=== PATIENT | female | born 1950 | race African-American/Black ===

== ENCOUNTER 2018-08-10 13:28 | Inpatient (IN) | payer OTHER ==
--- NOTE | 2018-08-10 14:15 | PDOC ---
History of Present Illness - General Chief Complaint: Respiratory Stated Complaint: Respiratory - History of Present Illness Initial Comments: The patient is a 68F who is ventilator dependent and w/ a history of COPD and HTN presents from her care facility for evaluation of hypoxia to the 80s at the facility as well as irregular heart beat. The patient reports increased trouble breathing, increased secretions recently, as well as a left chest point pain. She also reports a pressure-like back pain that radiates to her chest. She denies a history of irregular heart beat. She believes she takes a blood thinner, but it is not listed in her facility medications. She endoreses associated subjective fevers. Denies N/V/C/D, abdominal pain, BAEZ, vision changes, or changes in sensation. 08/10/18 15:40 Past History - Past Medical History Allergies/Adverse Reactions: Allergies Allergy/AdvReac Type Severity Reaction Status Date / Time No Known Allergies Allergy Verified 08/10/18 15:30 Home Medications: Ambulatory Orders Amlodipine Besylate 5 mg NGT DAILY 08/10/18 Budesonide [Pulmicort 0.5 mg Nebulizer -] 2 ml IH BID 08/10/18 Donepezil HCl 5 mg GT DAILY 08/10/18 Ipratropium/Albuterol Sulfate [Iprat-Albut 0.5-3(2.5) mg/3 ml] 3 ml IH Q6H 08/10 Polyethylene Glycol 3350 [Miralax (For Daily Use) -] 17 gm NGT DAILY 08/10/18 Prednisone 10 mg NGT ONCE 08/10/18 Verapamil HCl 40 mg GT DAILY 08/10/18 Zolpidem Tartrate [Ambien] 5 mg NGT ASDIR 08/10/18 Asthma: Yes COPD: Yes Dementia: Yes (alzheime's) HTN: Yes Other medical history: DIC, INSOMNIA, pulmunary mycobacterial infection, 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 - Suicide/Smoking/Psychosocial Hx Smoking History: Unknown if ever smoked Have you smoked in the past 12 months: No Hx Alcohol Use: No Drug/Substance Use Hx: No Review of Systems - Review of Systems Able to Perform ROS?: No (medical condition (trach)) *Physical Exam - Vital Signs Last Vital Signs Temp Pulse Resp BP Pulse Ox 99.8 F H 129 H 18 138/115 H 86 L 08/10/18 13:58 08/10/18 13:58 08/10/18 13:58 08/10/18 13:58 08/10/18 13:58 - Physical Exam Comments: GENERAL: Awake, alert, in no acute distress HEAD: No signs of trauma, normocephalic, atraumatic EYES: PERRL, EOMI, sclera anicteric, conjunctiva clear ENT: Hearing grossly normal, nares patent, oropharynx clear without exudates. Tracheostomy in place NECK: Normal ROM, supple, no cervical LAD LUNGS: No tachypnia, on vent; saturating 95-100%; b/l wheeze/rhonchi HEART: Tachycardia w/ rhythm, normal S1 and S2, no murmurs appreciated, peripheral pulses normal and equal bilaterally ABDOMEN: Soft, nontender, normoactive bowel sounds. PEG tube in place w/o surrounding erythema. No guarding, no rebound EXTREMITIES : Normal inspection, Normal range of motion, no edema. No clubbing or cyanosis NEUROLOGICAL: Follows two step commands; 11T; No focal sensorimotor deficits SKIN: Warm, Dry, normal turgor, no rashes or lesions noted 08/10/18 18:15 ED Treatment Course - LABORATORY CBC & Chemistry Diagram: 08/10/18 15:10 08/10/18 16:40 - RADIOLOGY Radiology Studies Ordered: Category Date Time Status CHEST X-RAY PORTABLE* [RAD] Stat Radiology 08/10/18 14:14 Ordered Medical Decision Making - Medical Decision Making The patient is a 68F who is ventilator dependent presents from her care facility for evaluation of hypoxia and irregular heartbeat ED Course Sepsis w/u Trop I CXR ECG Ofirmev 1000mg IV once for pain 1L NS for resuscitation 08/10/18 16:25 Lactate 0.8 WBC 10.7 ECG significant for sinus tachycardia CXR significant for RLL PNA -Will initiate Vanc and Zosyn for hospital acquired PNA Will give 1 round of duo-neb for wheeze/rhonchi 08/10/18 16:55 Plan for admission for COPD, PNA, sepsis UA w/o evidence of UTI Tachycardia improving 90s-100s from 120s Trop 0.07 08/10/18 17:57 Dispo: Admit 08/10/18 19:14 *DC/Admit/Observation/Transfer Diagnosis at time of Disposition: COPD (chronic obstructive pulmonary disease) Qualifiers: COPD type: unspecified COPD Qualified Code(s): J44.9 - Chronic obstructive pulmonary disease, unspecified PNA (pneumonia) Qualifiers: Pneumonia type: due to unspecified organism Laterality: right Lung location: unspecified part of lung Qualified Code(s): J18.9 - Pneumonia, unspecified organism Sepsis Qualifiers: Sepsis type: sepsis due to unspecified organism Qualified Code(s): A41.9 - Sepsis, unspecified organism - Discharge Dispostion Condition at time of disposition: Guarded Decision to Admit order: Yes - Referrals Referrals: Michael Kruger MD [Primary Care Provider] - - Patient Instructions - Post Discharge Activity
[2018-08-10 15:25] LABS: VENOUS PC02 35.8 mmHg (38-52); VENOUS PH 7.49 (7.32-7.42)
[2018-08-10 15:30] LABS: BASO % 0.5 % (0-2.0); EOS % 0.2 % (0-4.5); HEMATOCRIT 46.6 % (32.4-45.2); HEMOGLOBIN 14.9 GM/dL (10.7-15.3); LYMPH % 7.2 % (8-40); MCH 26.2 pg (25.7-33.7); MEAN CELL VOLUME 81.9 fl (80-96); MEAN PLT VOLUME 8.7 fl (7.5-11.1); MONO % 2.6 % (3.8-10.2); NEUT % 89.5 % (42.8-82.8); PLATELET COUNT 325 K/MM3 (134-434); RBC 5.69 M/mm3 (3.60-5.2); RDW 17.9 % (11.6-15.6); WHITE BLOOD COUNT 10.7 K/mm3 (4.0-10.0)
[2018-08-10 15:40] LABS: INR 0.94 (0.83-1.09); PROTHROMBIN TIME (PATIENT) 11.1 SEC (9.7-13.0)
[2018-08-10 15:42] LABS: ACTIVATED PTT 39.3 SECONDS (25.2-36.5)
--- NOTE | 2018-08-10 15:42 | PDOC ---
Attending Attestation - HPI HPI: 08/10/18 15:44 The patient is a 68 year old female with a significant past medical history of COPD, HTN, and ventilator dependent who presents to the ER for evaluation of hypoxia in the 80s and irregular heart beat. Patient has noticed increased secretions over the past few days. Patient is also complaining of back pain that is pressure-like in nature with radiation to the chest. Patient denies history of irregular heart beat. The patient denies chest pain, shortness of breath, headache, and dizziness. Patient admits to subjective fever but denies chills, nausea, vomit, diarrhea, and constipation. Denies dysuria, frequency, urgency, and hematuria. Allergies: NKA Past surgical history: None reported. Social history: No reported alcohol, drug, or cigarette use. PCP: Dr. Chaudhari - Physicial Exam PE: 08/10/18 16:12 Adult Physical Exam Vitals: Triage vital signs reviewed General Appearance: No acute distress, well nourished, well developed Cardiac: Regular rate and rhythm, no murmurs, no rubs, no gallops Lungs: Clear to auscultation bilateral, good air movement bilaterally Abdomen: Soft, nondistended, normal bowel sounds, nontender to palpation Extremities: Full range of motion to all extremities, no cyanosis, clubbing, or edema Skin: Warm and dry, no rashes or lesions, no rash, no petechiae Neuro: AOX3; Cranial Nerves 2-12 grossly intact, Strength intact to all extremities, Sensation intact to all extremities, gait normal Psych: Normal mood, normal affect <Heather Hester - Last Filed: 08/10/18 16:11> - Resident Resident Name: Chevy Miguel - ED Attending Attestation I have performed the following: I have examined & evaluated the patient, The case was reviewed & discussed with the resident, I agree w/resident's findings & plan, Exceptions are as noted - Medical Decision Making 08/10/18 16:49 Trached, vented presents to the ED with respiratory distress. Initially hypoxic tachycardic now improving on vent Chest x-ray and labs pending Likely Admission, Dr. Ash to follow up labs and reasses <Onel Mueller - Last Filed: 08/10/18 16:51> Heart Score/ECG Review - ECG Impressions Comment:: 08/10/18 16:49 EKG performed at 1558 demonstrates sinus tachycardia no ST elevations or T-wave inversions Interpreted by me. <Onel Mueller - Last Filed: 08/10/18 16:51>
[2018-08-10] MEDS ORDERED: ACETAMINOPHEN 1000 MG/100 ML VIAL (NON FORMULARY) IVPB ONE (15:44)
[2018-08-10] MEDS ORDERED: ACETAMINOPHEN INJECTION 100 ML IVPB ONE (16:42)
[2018-08-10] MEDS ORDERED: SODIUM CHLORIDE 0.9% 500 ML INFUS.BAG IV ONE (16:48)
--- NOTE | 2018-08-10 16:50 | PDOC ---
*Physical Exam - Vital Signs Last Vital Signs Temp Pulse Resp BP Pulse Ox 99.8 F H 120 H 18 138/115 H 100 08/10/18 14:30 08/10/18 14:30 08/10/18 14:30 08/10/18 13:58 08/10/18 14:30 - Physical Exam Comments: 08/10/18 17:10 Gen: trach, awake, vented heart: +s1s2 tachy lungs: rhonchi R base, wheezing on the R side abd: soft, nt/nd +bs ext: no c/c/e, radial/pedal pulses intact, no rashes ED Treatment Course - LABORATORY CBC & Chemistry Diagram: 08/10/18 15:10 08/10/18 16:40 - ADDITIONAL ORDERS Additional order review: Laboratory Results 08/10/18 08/10/18 08/10/18 15:23 15:10 15:10 PT with INR INR PTT (Actin FS) VBG pH 7.49 H POC VBG pCO2 35.8 L POC VBG pO2 132.0 H Mixed VBG HCO3 26.7 H Sodium Cancelled Potassium Cancelled Chloride Cancelled Carbon Dioxide Cancelled Anion Gap Cancelled BUN Cancelled Creatinine Cancelled Creat Clearance w eGFR Cancelled Random Glucose Cancelled Lactic Acid 0.8 Calcium Cancelled Total Bilirubin Cancelled AST Cancelled ALT Cancelled Alkaline Phosphatase Cancelled Total Protein Cancelled Albumin Cancelled 08/10/18 15:10 PT with INR 11.10 INR 0.94 PTT (Actin FS) 39.3 H VBG pH POC VBG pCO2 POC VBG pO2 Mixed VBG HCO3 Sodium Potassium Chloride Carbon Dioxide Anion Gap BUN Creatinine Creat Clearance w eGFR Random Glucose Lactic Acid Calcium Total Bilirubin AST ALT Alkaline Phosphatase Total Protein Albumin 08/10/18 15:10 RBC 5.69 H MCV 81.9 MCHC 32.0 RDW 17.9 H MPV 8.7 Neutrophils % 89.5 H Lymphocytes % 7.2 L Monocytes % 2.6 L Eosinophils % 0.2 Basophils % 0.5 Medical Decision Making - Medical Decision Making 08/10/18 16:49 pt signed out by the prior attending pending labs and xray pt with increased secretions and hypoxia upon arrival 08/10/18 17:11 pt with pna on xray wheezing rhonchi mildly elevated wbc - will start broad spectrum abx pt was hypoxic to 86 upon arrival and tachy to 129 vitals improved after suction and venting in the ed pt will need to be admitted PMD dr. Kruger admits to Dr. Davenport who is now covered by [facility] 08/10/18 18:38 resident discussed the case with davon who accepts the patient to service *DC/Admit/Observation/Transfer Diagnosis at time of Disposition: COPD (chronic obstructive pulmonary disease) Qualifiers: COPD type: unspecified COPD Qualified Code(s): J44.9 - Chronic obstructive pulmonary disease, unspecified PNA (pneumonia) Qualifiers: Pneumonia type: due to unspecified organism Laterality: right Lung location: unspecified part of lung Qualified Code(s): J18.9 - Pneumonia, unspecified organism Sepsis Qualifiers: Sepsis type: sepsis due to unspecified organism Qualified Code(s): A41.9 - Sepsis, unspecified organism - Discharge Dispostion Condition at time of disposition: Guarded Decision to Admit order: Yes - Referrals Referrals: Michael Kruger MD [Primary Care Provider] - - Patient Instructions - Post Discharge Activity - Attestations Physician Attestion: 08/10/18 16:50 I, Dr. Clemencia Ash, DO, attest that this document has been prepared under my direction and personally reviewed by me in its entirety. I further attest, that it accurately reflects all work, treatment, procedures and medical decision -making performed by me.
[2018-08-10] MEDS ORDERED: VANCOMYCIN 1,500 MG in DEXTROSE 5%-WATER - 500 ML IVPB ONE (16:53)
[2018-08-10] MEDS ORDERED: PIPERACILLIN/TAZOB 3.375 GM 3.375 GM in DEXTROSE 5%-WATER - 50 ML IVPB ONE (16:53)
[2018-08-10] MEDS ORDERED: ALBUTEROL SO4 2.5/IPRATROPIUM 0.5 INH SOL 3 ML VIAL.NEB. NEB ONE ×3 (17:03→22:16)
[2018-08-10 17:19] LABS: URINE APPEARANCE SLCLOUDY; URINE BILIRUBIN NEGATIVE (<2.0 mg/dL); URINE COLOR LTYELLOW; URINE GLUCOSE (UA) NEGATIVE (NEGATIVE); URINE KETONE NEGATIVE (NEGATIVE); URINE LEUK ESTERASE 2+ (NEGATIVE); URINE NITRITE NEGATIVE (NEGATIVE); URINE PROTEIN NEGATIVE (NEGATIVE); URINE UROBILINOGEN NEGATIVE mg/dL (0.2-1.0)
[2018-08-10] MEDS ORDERED: PIPERACILLIN/TAZOB 3.375 GM 3.375 GM/50 ML BAG IVPB ONE (17:30)
[2018-08-10 17:31] LABS: EPI CELLS MODERATE /HPF (FEW); URINE MUCUS RARE
[2018-08-10 17:49] LABS: ALBUMIN 3.6 g/dl (3.4-5.0); ALK PHOS 90 U/L (45-117); ANION GAP 7 MMOL/L (8-16); BILIRUBIN,TOTAL 0.5 mg/dL (0.2-1); BLOOD UREA NITROGEN 14 mg/dL (7-18); CALCIUM 9.8 mg/dL (8.5-10.1); CHLORIDE 101 mmol/L (98-107); CO2 29 mmol/L (21-32); CREATININE 0.7 mg/dL (0.55-1.3); GLUCOSE,RANDOM 107 mg/dL (74-106); POTASSIUM 4.3 mmol/L (3.5-5.1); SGOT/AST 20 U/L (15-37); SGPT/ALT 6 U/L (13-61); SODIUM 136 mmol/L (136-145)
[2018-08-10] MEDS ORDERED: PANTOPRAZOLE SODIUM 40 MG VIAL IVPUSH ONE (18:47)
--- NOTE | 2018-08-10 18:54 | HP ---
CHIEF COMPLAINT: shortness of breath, fatigue PCP: Dr. Chaudhari HISTORY OF PRESENT ILLNESS: Patient is a 68 year old female with a significant past medical history of COPD , hypertension, ventilator dependency, peg tube. She presents to the ED from [facility] for shortness of breath, increased secretions and hypoxia. In the ED patient noted to have scattered rhonchi and hypoxia with oxygen in the 80s on arrival. She was also noted to be with sinus tachycardia in the 120s. Patient was suctioned and placed on ventilator and improved. She denies chest pain, states breathing is better after placed on the vent. Denies abdominal pain. She was note to have mildly elevated WBC, scattered wheezing and course rhonchi on auscultation suspicious for aspiration pneumonia. ER course was notable for: (1) wbc 10.7 (2) ph 7.49, co2 35.8, po2 132 (3) chest xray with evidence of pneumonia. (4) ekg with nsr 113, non specific t wave abnormality Family History: Allergies No Known Allergies Allergy (Verified 08/10/18 15:30) HOME MEDICATIONS: Home Medications Medication Instructions Recorded Amlodipine Besylate 5 mg NGT DAILY 08/10/18 Budesonide [Pulmicort 0.5 mg 2 ml IH BID 08/10/18 Nebulizer -] Donepezil HCl 5 mg GT DAILY 08/10/18 Ipratropium/Albuterol Sulfate 3 ml IH Q6H 08/10/18 [Iprat-Albut 0.5-3(2.5) mg/3 ml] Polyethylene Glycol 3350 [Miralax 17 gm NGT DAILY 08/10/18 (For Daily Use) -] Prednisone 10 mg NGT ONCE 08/10/18 Verapamil HCl 40 mg GT DAILY 08/10/18 Zolpidem Tartrate [Ambien] 5 mg NGT ASDIR 08/10/18 PHYSICAL EXAMINATION Vital Signs - 24 hr 08/10/18 08/10/18 08/10/18 13:58 14:10 14:30 Temperature 99.8 F H 99.8 F H Pulse Rate 129 H 120 H Respiratory 18 12 12 Rate Blood Pressure 138/115 H O2 Sat by Pulse 86 L 100 Oximetry (%) 08/10/18 18:00 Temperature Pulse Rate Respiratory 14 Rate Blood Pressure O2 Sat by Pulse Oximetry (%) GENERAL: Awake, in no acute distress. HEAD: Normal with no signs of trauma. EYES: Pupils equal, round and reactive to light, extraocular movements intact, sclera anicteric, conjunctiva clear. No lid lag. EARS, NOSE, THROAT: Ears normal, nares patent, oropharynx clear without exudates. Moist mucous membranes. NECK: + trach LUNGS: scattered wheezing, scattered rhonchi, accessory muscle use. improved with ventilator placement HEART: Regular rate and rhythm, normal S1 and S2 without murmur, rub or gallop. ABDOMEN: Soft, nontender, not distended, normoactive bowel sounds,+peg tube MUSCULOSKELETAL: No bony deformities or tenderness. No CVA tenderness. UPPER EXTREMITIES: No peripheral edema. LOWER EXTREMITIES: No calf tenderness. No peripheral edema PSYCHIATRIC: Cooperative. Good eye contact. Appropriate mood and affect. SKIN: Warm, dry, normal turgor, no rashes or lesions noted, normal capillary refill. Laboratory Results - last 24 hr 08/10/18 08/10/18 08/10/18 15:10 15:10 15:10 WBC 10.7 H RBC 5.69 H Hgb 14.9 Hct 46.6 H MCV 81.9 MCH 26.2 MCHC 32.0 RDW 17.9 H Plt Count 325 MPV 8.7 Absolute Neuts (auto) 9.6 H Neutrophils % 89.5 H Lymphocytes % 7.2 L Monocytes % 2.6 L Eosinophils % 0.2 Basophils % 0.5 Nucleated RBC % 0 PT with INR 11.10 INR 0.94 PTT (Actin FS) 39.3 H VBG pH POC VBG pCO2 POC VBG pO2 Mixed VBG HCO3 Sodium Cancelled Potassium Cancelled Chloride Cancelled Carbon Dioxide Cancelled Anion Gap Cancelled BUN Cancelled Creatinine Cancelled Creat Clearance w eGFR Cancelled Random Glucose Cancelled Lactic Acid Calcium Cancelled Total Bilirubin Cancelled AST Cancelled ALT Cancelled Alkaline Phosphatase Cancelled Troponin I Total Protein Cancelled Albumin Cancelled Urine Color Urine Appearance Urine pH Ur Specific [place] Urine Protein Urine Glucose (UA) Urine Ketones Urine Blood Urine Nitrite Urine Bilirubin Urine Urobilinogen Ur Leukocyte Esterase Urine WBC (Auto) Urine RBC (Auto) Ur Epithelial Cells Hyaline Casts Urine Mucus 08/10/18 08/10/18 08/10/18 15:10 15:23 16:40 WBC RBC Hgb Hct MCV MCH MCHC RDW Plt Count MPV Absolute Neuts (auto) Neutrophils % Lymphocytes % Monocytes % Eosinophils % Basophils % Nucleated RBC % PT with INR INR PTT (Actin FS) VBG pH 7.49 H POC VBG pCO2 35.8 L POC VBG pO2 132.0 H Mixed VBG HCO3 26.7 H Sodium 136 Potassium 4.3 Chloride 101 Carbon Dioxide 29 Anion Gap 7 L BUN 14 Creatinine 0.7 Creat Clearance w eGFR > 60 Random Glucose 107 H Lactic Acid 0.8 Calcium 9.8 Total Bilirubin 0.5 AST 20 ALT 6 L Alkaline Phosphatase 90 Troponin I 0.07 H Total Protein 8.0 Albumin 3.6 Urine Color Urine Appearance Urine pH Ur Specific [place] Urine Protein Urine Glucose (UA) Urine Ketones Urine Blood Urine Nitrite Urine Bilirubin Urine Urobilinogen Ur Leukocyte Esterase Urine WBC (Auto) Urine RBC (Auto) Ur Epithelial Cells Hyaline Casts Urine Mucus 08/10/18 08/10/18 17:10 17:50 WBC RBC Hgb Hct MCV MCH MCHC RDW Plt Count MPV Absolute Neuts (auto) Neutrophils % Lymphocytes % Monocytes % Eosinophils % Basophils % Nucleated RBC % PT with INR INR PTT (Actin FS) VBG pH POC VBG pCO2 POC VBG pO2 Mixed VBG HCO3 Sodium Potassium Chloride Carbon Dioxide Anion Gap BUN Creatinine Creat Clearance w eGFR Random Glucose Lactic Acid 0.8 Calcium Total Bilirubin AST ALT Alkaline Phosphatase Troponin I Total Protein Albumin Urine Color Ltyellow Urine Appearance Slcloudy Urine pH 8.0 Ur Specific [place] 1.011 Urine Protein Negative Urine Glucose (UA) Negative Urine Ketones Negative Urine Blood Negative Urine Nitrite Negative Urine Bilirubin Negative Urine Urobilinogen Negative Ur Leukocyte Esterase 2+ H Urine WBC (Auto) 42 Urine RBC (Auto) 40-60 Ur Epithelial Cells Moderate Hyaline Casts 5-9 Urine Mucus Rare ASSESSMENT/PLAN: Patient is a 68 year old female with a significant past medical history of COPD , hypertension, ventilator dependency, peg tube. She presents to the ED from [facility] for shortness of breath, increased secretions and hypoxia. In the ED patient noted to have scattered rhonchi and hypoxia with oxygen in the 80s on arrival. She was also noted to be with sinus tachycardia in the 120s. Patient was suctioned and placed on ventilator and improved. She denies chest pain, states breathing is better after placed on the vent. Denies abdominal pain. She was note to have mildly elevated WBC, scattered wheezing and course rhonchi on auscultation suspicious or aspiration pneumonia. Pulm: Aspiration pneumonia vs. Community acquired pneumonia. Chest xray with evidence of aspiration pneumonia. Patient has chronic peg tube. will order: duonebs scheduled, solumedrol 60mg q6 for wheezing, chest ct to further evaluate pna, zosyn iv in the ED. Will order one time night zosyn dose. ID consulted for further recommendations. urine and blood cultures pending. Card: EKG ST in the 117, trend troponins will order: troponins, echo : UA with +2 leuk est. coverage with zosyn. urine and blood cultures pending. fen will give gentle hydration and maintain NPO for possible aspiration pna monitor electrolytes npo, resume TF per primary provider disposition full code Visit type - Emergency Visit Emergency Visit: Yes ED Registration Date: 08/10/18 Care time: The patient presented to the Emergency Department on the above date and was hospitalized for further evaluation of their emergent condition. - New Patient This patient is new to me today: Yes Date on this admission: 08/10/18 - Critical Care Critical Care patient: No
[2018-08-10] MEDS ORDERED: methylPREDNISolone NA SUCC 40 MG/1 ML VIAL ONE ×2 (19:28→22:17)
[2018-08-10] MEDS ORDERED: PANTOPRAZOLE SODIUM 40 MG VIAL ONE (19:28)
[2018-08-10] MEDS: methylPREDNISolone NA SUCC 40 MG/1 ML VIAL IVPUSH SCH (19:33)
[2018-08-10] MEDS: SODIUM CHLORIDE 1,000 ML IV SCH (21:56)
[2018-08-10] MEDS: ALBUTEROL SO4 2.5/IPRATROPIUM 0.5 INH SOL 3 ML VIAL.NEB. NEB SCH (21:56)
[2018-08-10] MEDS: HEPARIN NA (PORCINE) 5,000 UNITS/ML 1ML VIAL SQ SCH (22:06)
[2018-08-10] MEDS ORDERED: HEPARIN NA (PORCINE) 5,000 UNITS/ML 1ML VIAL ONE (22:16)
[2018-08-11] MEDS ORDERED: PIPERACILLIN/TAZOB 3.375 GM 3.375 GM in DEXTROSE 5%-WATER - 50 ML IVPB ONE
[2018-08-11] MEDS: methylPREDNISolone NA SUCC 40 MG/1 ML VIAL IVPUSH SCH ×4 (04:21→18:44)
[2018-08-11] MEDS: HEPARIN NA (PORCINE) 5,000 UNITS/ML 1ML VIAL SQ SCH ×3 (06:01→22:37)
[2018-08-11] MEDS: ALBUTEROL SO4 2.5/IPRATROPIUM 0.5 INH SOL 3 ML VIAL.NEB. NEB SCH ×4 (07:04→21:46)
[2018-08-11 08:25] LABS: HEMATOCRIT 45.5 % (32.4-45.2); HEMOGLOBIN 14.8 GM/dL (10.7-15.3); MCH 26.6 pg (25.7-33.7); MCHC 32.5 g/dl (32.0-36.0); MEAN CELL VOLUME 82.1 fl (80-96); MEAN PLT VOLUME 8.4 fl (7.5-11.1); PLATELET COUNT 292 K/MM3 (134-434); RBC 5.54 M/mm3 (3.60-5.2); RDW 17.2 % (11.6-15.6); WHITE BLOOD COUNT 9.7 K/mm3 (4.0-10.0)
[2018-08-11 08:46] LABS: ANION GAP 10 MMOL/L (8-16); BLOOD UREA NITROGEN 16 mg/dL (7-18); CALCIUM 10.6 mg/dL (8.5-10.1); CHLORIDE 104 mmol/L (98-107); CO2 25 mmol/L (21-32); CREATININE 0.8 mg/dL (0.55-1.3); GLUCOSE,RANDOM 114 mg/dL (74-106); MAGNESIUM 2.4 mg/dL (1.8-2.4); POTASSIUM 4.2 mmol/L (3.5-5.1); SODIUM 139 mmol/L (136-145)
[2018-08-11] MEDS ORDERED: amLODIPine BESYLATE 5 MG TABLET (FP) ONE (08:55)
--- NOTE | 2018-08-11 09:12 | CON.ID ---
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 Cardio/Vascular: Yes: CHF, HTN, Pulmonary Hypertension Pulmonary: Yes: COPD, Other (respiratory failure with tracheostomy) - Past Surgical History Additional Surgical History: peg tube, tracheostomy - Alcohol/Substance Use Hx Alcohol Use: No - Smoking History Smoking history: Unknown if ever smoked Have you smoked in the past 12 months: No - Social History Usual Living Arrangement: [facility] ADL: Support Services History of Recent Travel: No Home Medications - Allergies Allergies/Adverse Reactions: Allergies Allergy/AdvReac Type Severity Reaction Status Date / Time No Known Allergies Allergy Verified 08/10/18 15:30 - Home Medications Home Medications: Ambulatory Orders Amlodipine Besylate 5 mg NGT DAILY 08/10/18 Budesonide [Pulmicort 0.5 mg Nebulizer -] 2 ml IH BID 08/10/18 Carbidopa/Levodopa [Carbidopa-Levo ER 50-200 Tab] 1 each PO Q6H 08/10/18 Donepezil HCl 5 mg GT DAILY 08/10/18 Ipratropium/Albuterol Sulfate [Iprat-Albut 0.5-3(2.5) mg/3 ml] 3 ml IH Q6H 08/10 Polyethylene Glycol 3350 [Miralax (For Daily Use) -] 17 gm NGT DAILY 08/10/18 Prednisone 10 mg NGT ONCE 08/10/18 Selegiline HCl 5 mg NGT DAILY 08/10/18 Verapamil HCl 40 mg GT DAILY 08/10/18 Zolpidem Tartrate [Ambien] 5 mg NGT ASDIR 08/10/18 Family Disease History - Family Disease History Family History: Unable to Obtain Review of Systems - Review of Systems Constitutional: denies: Chills, Fever Cardiovascular: reports: Chest Pain Gastrointestinal: denies: Abdominal Pain Physical Exam Vital Signs: Vital Signs Temperature 98.1 F 08/11/18 08:36 Pulse Rate 87 08/11/18 08:36 Respiratory Rate 12 08/11/18 08:45 Blood Pressure 157/106 H 08/11/18 08:36 O2 Sat by Pulse Oximetry (%) 95 08/11/18 02:43 Constitutional: Yes: Well Nourished, No Distress Eyes: Yes: Conjunctiva Clear HENT: Yes: Atraumatic, Normocephalic Neck: Yes: Other (tracheostomy) Cardiovascular: Yes: Regular Rate and Rhythm Respiratory: Yes: Regular, Diminished (at bases) Gastrointestinal: Yes: Normal Bowel Sounds, Soft ...Rectal Exam: Yes: Deferred Extremities: Yes: WNL Edema: No Integumentary: Yes: Other (no skin breakdown) Neurological: Yes: Alert, Oriented Labs: CBC, BMP 08/11/18 07:05 08/11/18 07:05 Imaging - Results Chest X-ray: Report Reviewed, Image Reviewed Cat Scan: Report Reviewed, Image Reviewed (RLL atelectasis/effusion) Problem List - Problems (1) PNA (pneumonia) Code(s): J18.9 - PNEUMONIA, UNSPECIFIED ORGANISM Qualifiers: Pneumonia type: due to unspecified organism Laterality: right Lung location: unspecified part of lung Qualified Code(s): J18.9 - Pneumonia, unspecified organism (2) Respiratory failure, chronic Code(s): J96.10 - CHRONIC RESPIRATORY FAILURE, UNSP W HYPOXIA OR HYPERCAPNIA (3) Hypoxia Code(s): R09.02 - HYPOXEMIA (4) HTN (hypertension) Code(s): I10 - ESSENTIAL (PRIMARY) HYPERTENSION (5) MRSA (methicillin resistant Staphylococcus aureus) colonization Code(s): Z22.322 - CARRIER OR SUSPECTED CARRIER OF METHICILLIN RESIS STAPH Assessment/Plan started on vancomycin and zosyn in ED will continue for possible pneumonia chest ct with RLL atelectasis/effusion- d/w radiology d/w Dr Blackwood who know her from [place]- he will see her to evaluate hypoxia history mrsa sputum colonization per [place] transfer sheets continue isolation for MRSA will continue vanco/zosyn for now
--- NOTE | 2018-08-11 09:27 | EKG ---
Test Reason : Blood Pressure : / mmHG Vent. Rate : 113 BPM Atrial Rate : 113 BPM P-R Int : 152 ms QRS Dur : 086 ms QT Int : 338 ms P-R-T Axes : 049 -02 058 degrees QTc Int : 463 ms SINUS TACHYCARDIA BIATRIAL ENLARGEMENT NO PREVIOUS ECGS AVAILABLE Confirmed by JOSH ENGLAND MD ([id number]) on 08/11/2018 9:27:50 AM Referred By: Confirmed By:JOSH ENGLAND MD
--- NOTE | 2018-08-11 09:51 | PN ---
Progress Note, Physician History of Present Illness: Patient is a 68 year old female with a significant past medical history of COPD , hypertension, ventilator dependency, peg tube. She presents to the ED from [facility] for shortness of breath, increased secretions and hypoxia. In the ED patient noted to have scattered rhonchi and hypoxia with oxygen in the 80s on arrival. She was also noted to be with sinus tachycardia in the 120s. Patient was suctioned and placed on ventilator and improved. - Current Medication List Current Medications: Active Medications Albuterol/Ipratropium (Duoneb -) 1 amp NEB RQID [facility] Last Admin: 08/11/18 07:04 Dose: 1 amp Amlodipine Besylate (Norvasc -) 10 mg PO DAILY [facility] Carbidopa/Levodopa (Sinemet *Cr* 50/200 -) 1 combo PO QID [facility] Last Admin: 08/11/18 00:00 Dose: 1 combo Donepezil HCl (Aricept -) 5 mg GT HS AMANDA Heparin Sodium (Porcine) (Heparin -) 5,000 unit SQ TID [facility] Last Admin: 08/11/18 06:01 Dose: 5,000 unit Sodium Chloride (Normal Saline -) 1,000 mls @ 42 mls/hr IV ASDIR [facility] Last Admin: 08/10/18 21:56 Dose: 42 mls/hr Losartan Potassium (Cozaar -) 50 mg PO DAILY [facility] Methylprednisolone Sodium Succinate (Solu-Medrol -) 60 mg IVPUSH Q6H-IV [facility] Last Admin: 08/11/18 04:21 Dose: 60 mg Non-Formulary Medication (Selegiline Hcl [Selegiline Hcl]) 5 mg NGT DAILY [facility] Pantoprazole Sodium (Protonix Iv) 40 mg IVPUSH DAILY [facility] Zolpidem Tartrate (Ambien -) 5 mg NGT HS PRN PRN Reason: INSOMNIA - Objective Vital Signs: Vital Signs Temperature 98.1 F 08/11/18 08:36 Pulse Rate 87 08/11/18 08:36 Respiratory Rate 12 08/11/18 06:28 Blood Pressure 157/106 H 08/11/18 08:36 O2 Sat by Pulse Oximetry (%) 95 08/11/18 02:43 Cardiovascular: Yes: S1, S2 Respiratory: Yes: Mechanically Ventilated, Rhonchi Gastrointestinal: Yes: Normal Bowel Sounds, Soft Labs: CBC, BMP 08/11/18 07:05 08/11/18 07:05 INR, PTT INR 0.94 (0.83-1.09) 08/10/18 15:10 Problem List - Problems (1) COPD (chronic obstructive pulmonary disease) Assessment/Plan: -nebs -steroids Code(s): J44.9 - CHRONIC OBSTRUCTIVE PULMONARY DISEASE, UNSPECIFIED Qualifiers: COPD type: unspecified COPD Qualified Code(s): J44.9 - Chronic obstructive pulmonary disease, unspecified (2) HTN (hypertension) Assessment/Plan: Vital Signs Period Temp Pulse Resp BP Sys/Garibay Pulse Ox Last 24 Hr 98.1 F-99.8 F 80-129 12-31 138-157/104-115 86-100 meds adjusted cardio Code(s): I10 - ESSENTIAL (PRIMARY) HYPERTENSION (3) PNA (pneumonia) Assessment/Plan: Chest xray with evidence of pneumonia. duonebs solumedrol 60mg q6 zosyn iv ID consulted for further recommendations. urine and blood cultures pending. Code(s): J18.9 - PNEUMONIA, UNSPECIFIED ORGANISM Qualifiers: Pneumonia type: due to unspecified organism Laterality: right Lung location: unspecified part of lung Qualified Code(s): J18.9 - Pneumonia, unspecified organism (4) Respiratory failure, chronic Assessment/Plan: -pulm consult Code(s): J96.10 - CHRONIC RESPIRATORY FAILURE, UNSP W HYPOXIA OR HYPERCAPNIA
[2018-08-11] MEDS: amLODIPine BESYLATE 10 MG TABLET (FP) PO SCH (09:54)
[2018-08-11] MEDS: PANTOPRAZOLE SODIUM 40 MG VIAL IVPUSH SCH (09:56)
[2018-08-11] MEDS ORDERED: VERAPAMIL HCL 40 MG TABLET (FP) PEG SCH (10:00)
[2018-08-11] MEDS ORDERED: amLODIPine BESYLATE 5 MG TABLET (FP) NGT SCH (10:00)
[2018-08-11] MEDS ORDERED: SELEGILINE HCL 5 MG NGT SCH (10:00)
[2018-08-11] MEDS: LOSARTAN POTASSIUM 50 MG TABLET (FP) PO SCH (10:12)
--- NOTE | 2018-08-11 10:23 | ECHO ---
Name: LISA CABELLO Exam:Adult Echocardiogram Study Date: 08/11/2018 09:10 AM Age: 68 yrs Reason For Study: SOB Height: 63 in Weight: 136 lb BSA: 1.6 m2 MMode/2D Measurements & Calculations IVSd: 2.1 cm Ao root diam: 3.0 cm LVIDd: 2.9 cm LA dimension: 2.3 cm LVIDs: 1.9 cm LVPWd: 0.87 cm LVPWs: 1.0 cm EDV(Teich): 33.3 ml ESV(Teich): 11.9 ml Doppler Measurements & Calculations MV E max caitlin: 42.9 cm/sec Ao V2 max: 109.9 cm/sec MV A max caitlin: 117.5 cm/sec Ao max P.8 mmHg MV E/A: 0.37 MV dec time: 0.12 sec LV V1 max P.9 mmHg TR max caitlin: 237.0 cm/sec LV V1 max: 110.6 cm/sec TR max P.7 mmHg PA V2 max: 101.1 cm/sec Med Peak E' Caitlin: 3.8 cm/sec PA max P.1 mmHg Med E/e': 11.2 Lat Peak E' Caitlin: 6.3 cm/sec Lat E/e': 6.9 Left Ventricle There is severe asymmetric left ventricular hypertrophy. No systolic anterior motion of the mitral va lve. The echo findings are consistent with non-obstructive hypertrophic cardiomyopathy. Ejection Fraction = 55 -60%. The transmitral spectral Doppler flow pattern is suggestive of impaired LV relaxation. Right Ventricle The right ventricle is normal in size and function. Atria Normal left and right atrial size and function. Mitral Valve The mitral valve is normal in structure and function. There is no mitral valve stenosis. There is tra ce mitral regurgitation. Tricuspid Valve The tricuspid valve is not well visualized, but is grossly normal. There is mild tricuspid regurgitat ion. Right ventricular systolic pressure is normal. Aortic Valve The aortic valve opens well. No hemodynamically significant valvular aortic stenosis. No aortic regur gitation is present. Pulmonic Valve The pulmonic valve is not well seen, but is grossly normal. There is no pulmonic valvular stenosis. Great Vessels The aortic root is normal size. Pericardium/Pleura Trivial pericardial effusion not hemodynamically significant. Interpretation Summary Ejection Fraction = 55-60%. There is severe asymmetric left ventricular hypertrophy. No systolic anterior motion of the mitral valve. The echo findings are consistent with non-obstructive hypertrophic cardiomyopathy. The transmitral spectral Doppler flow pattern is suggestive of impaired LV relaxation. The right ventricle is normal in size and function. There is mild tricuspid regurgitation. Right ventricular systolic pressure is normal. Trivial pericardial effusion not hemodynamically significant MD Rojelio Gallardo 08/11/2018 10:22 AM
[2018-08-11] MEDS ORDERED: VANCOMYCIN 1 GRAM (PRE-DOCKED) 1,000 MG/250 ML BAG IVPB SCH (10:45)
[2018-08-11] MEDS ORDERED: ALBUTEROL SO4 2.5/IPRATROPIUM 0.5 INH SOL 3 ML VIAL.NEB. NEB ONE ×2 (12:40→17:13)
[2018-08-11] MEDS ORDERED: VANCOMYCIN 1 GRAM (PRE-DOCKED) 1,000 MG/250 ML BAG IVPB ONE (12:43)
[2018-08-11] MEDS ORDERED: PIPERACILLIN/TAZOB 3.375 GM 3.375 GM/50 ML BAG IVPB ONE ×2 (12:43→18:44)
[2018-08-11] MEDS: PIPERACILLIN/TAZOB 3.375 GM 3.375 GM in DEXTROSE 5%-WATER - 50 ML IVPB SCH ×2 (12:44→18:44)
[2018-08-11] MEDS: VANCOMYCIN 1 GRAM (PRE-DOCKED) 1,000 MG/250 ML BAG IVPB SCH ×2 (12:48→22:37)
--- NOTE | 2018-08-11 15:09 | CON.CARD ---
Consult Consult Specialty:: Cardiology Referred by:: Amparo Reason for Consultation:: tachycardia - History of Present Illness Chief Complaint: sob History of Present Illness: She is a 68 year old female with a history of COPD, hypertension, ventilator dependent, tracheostomy, peg tube admitted from [facility] for shortness of breath, increased secretions and hypoxia. In the ED patient noted to have scattered rhonchi and hypoxia with oxygen in the 80s on arrival. She was also noted to be with sinus tachycardia in the 120s. Patient was suctioned and placed on ventilator and improved. Now alert on vent. 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 Cardio/Vascular: Yes: CHF, HTN, Pulmonary Hypertension Pulmonary: Yes: COPD, Other (respiratory failure with tracheostomy) - Past Surgical History Additional Surgical History: peg tube, tracheostomy - Alcohol/Substance Use Hx Alcohol Use: No - Smoking History Smoking history: Unknown if ever smoked Have you smoked in the past 12 months: No - Social History Usual Living Arrangement: Alf ADL: Support Services History of Recent Travel: No Home Medications - Allergies Allergies/Adverse Reactions: Allergies Allergy/AdvReac Type Severity Reaction Status Date / Time No Known Allergies Allergy Verified 08/10/18 15:30 - Home Medications Home Medications: Ambulatory Orders Amlodipine Besylate 5 mg NGT DAILY 08/10/18 Budesonide [Pulmicort 0.5 mg Nebulizer -] 2 ml IH BID 08/10/18 Carbidopa/Levodopa [Carbidopa-Levo ER 50-200 Tab] 1 each PO Q6H 08/10/18 Donepezil HCl 5 mg GT DAILY 08/10/18 Ipratropium/Albuterol Sulfate [Iprat-Albut 0.5-3(2.5) mg/3 ml] 3 ml IH Q6H 08/10 Polyethylene Glycol 3350 [Miralax (For Daily Use) -] 17 gm NGT DAILY 08/10/18 Prednisone 10 mg NGT ONCE 08/10/18 Selegiline HCl 5 mg NGT DAILY 08/10/18 Verapamil HCl 40 mg GT DAILY 08/10/18 Zolpidem Tartrate [Ambien] 5 mg NGT ASDIR 08/10/18 Vital Signs: Vital Signs Temperature 98.4 F 10/05/18 14:52 Pulse Rate 78 08/11/18 14:52 Respiratory Rate 22 H 08/11/18 13:59 Blood Pressure 133/92 08/11/18 14:52 O2 Sat by Pulse Oximetry (%) 97 08/11/18 10:13 Constitutional: Yes: No Distress, Calm Eyes: Yes: Conjunctiva Clear, EOM Intact HENT: Yes: Normocephalic Neck: Yes: Trachea Midline Respiratory: Yes: Mechanically Ventilated, Rhonchi Gastrointestinal: Yes: Normal Bowel Sounds, Soft JVD: No Carotid Bruit: No PMI: Non-Displaced Heart Sounds: Yes: S1, S2 Edema: No Peripheral Pulses WNL: Yes - Other Data Labs, Other Data: CBC, BMP 08/11/18 07:05 08/11/18 07:05 INR, PTT INR 0.94 (0.83-1.09) 08/10/18 15:10 Troponin, BNP 08/10/18 08/11/18 08/11/18 16:40 04:20 07:05 Troponin I 0.07 H 0.06 H 0.06 H Troponin, BNP 08/10/18 08/11/18 08/11/18 16:40 04:20 07:05 Troponin I 0.07 H 0.06 H 0.06 H Imaging - Results Chest X-ray: Report Reviewed (cm, TA, elev rt hemidiaphragm) X-ray: Report Reviewed Cat Scan: Report Reviewed (rt effusion and atalectasis.) EKG: Report Reviewed (stach) Assessment/Plan She is a 68 year old female with a history of COPD, hypertension, ventilator dependent, tracheostomy, peg tube admitted from [facility] for shortness of breath, increased secretions and hypoxia. In the ED patient noted to have scattered rhonchi and hypoxia with oxygen in the 80s on arrival. She was also noted to be with sinus tachycardia in the 120s. Patient was suctioned and placed on ventilator and improved. Now alert on vent. Echo 08/11/18: nlef, LON no LVOT gradient, mild TR trivial PE Sinus tachycardia -due to hypoxia, not in CHF. -isolated rt effusion and atalectasis likely cause. -troponin pattern is not c/w ACS, likely demand from hypoxia. -not a candidate for ischemia workup. -no need for further cardiac testing. -no need for telemetry monitoring. -call us with questions.
--- NOTE | 2018-08-11 15:48 | CON.PULM ---
Consult Consult Specialty:: PULMONARY Referred by:: KIP Reason for Consultation:: VENT DEPENDANT - History of Present Illness Chief Complaint: HYPOXIA History of Present Illness: Patient is a 68 year old female with a significant past medical history of COPD , hypertension, ventilator dependency, peg tube. She presents to the ED from [facility] for shortness of breath, increased secretions and hypoxia. In the ED patient noted to have scattered rhonchi and hypoxia with oxygen in the 80s on arrival. She was also noted to be with sinus tachycardia in the 120s. Patient was suctioned and placed on ventilator and improved. Patient was originally transferrd to hospital due to hypertension. 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 Cardio/Vascular: Yes: CHF, HTN, Pulmonary Hypertension Pulmonary: Yes: COPD, Other (respiratory failure with tracheostomy) - Past Surgical History Additional Surgical History: peg tube, tracheostomy - Alcohol/Substance Use Hx Alcohol Use: No - Smoking History Smoking history: Unknown if ever smoked Have you smoked in the past 12 months: No - Social History Usual Living Arrangement: Senior Care ADL: Support Services History of Recent Travel: No Home Medications - Allergies Allergies/Adverse Reactions: Allergies Allergy/AdvReac Type Severity Reaction Status Date / Time No Known Allergies Allergy Verified 08/10/18 15:30 - Home Medications Home Medications: Ambulatory Orders Amlodipine Besylate 5 mg NGT DAILY 08/10/18 Budesonide [Pulmicort 0.5 mg Nebulizer -] 2 ml IH BID 08/10/18 Carbidopa/Levodopa [Carbidopa-Levo ER 50-200 Tab] 1 each PO Q6H 08/10/18 Donepezil HCl 5 mg GT DAILY 08/10/18 Ipratropium/Albuterol Sulfate [Iprat-Albut 0.5-3(2.5) mg/3 ml] 3 ml IH Q6H 08/10 Polyethylene Glycol 3350 [Miralax (For Daily Use) -] 17 gm NGT DAILY 08/10/18 Prednisone 10 mg NGT ONCE 08/10/18 Selegiline HCl 5 mg NGT DAILY 08/10/18 Verapamil HCl 40 mg GT DAILY 08/10/18 Zolpidem Tartrate [Ambien] 5 mg NGT ASDIR 08/10/18 Family Disease History - Family Disease History Family History: Unable to Obtain Physical Exam Vital Sings: Vital Signs Temperature 98.4 F 08/11/18 14:52 Pulse Rate 78 08/11/18 14:52 Respiratory Rate 22 H 08/11/18 13:59 Blood Pressure 133/92 08/11/18 14:52 O2 Sat by Pulse Oximetry (%) 97 08/11/18 10:13 Constitutional: Yes: Calm Eyes: Yes: EOM Intact HENT: Yes: Normocephalic Neck: Yes: Trachea Midline Cardiovascular: Yes: S1, S2 Respiratory: Yes: CTA Bilaterally Gastrointestinal: Yes: Abdomen, Obese Edema: LLE: Trace, RLE: Trace Neurological: Yes: Alert Labs: CBC, BMP 08/11/18 07:05 08/11/18 07:05 rest reviewed Imaging - Results Chest X-ray: Report Reviewed, Image Reviewed X-ray: Report Reviewed, Image Reviewed Problem List - Problems (1) Hypertension Code(s): I10 - ESSENTIAL (PRIMARY) HYPERTENSION (2) COPD (chronic obstructive pulmonary disease) Code(s): J44.9 - CHRONIC OBSTRUCTIVE PULMONARY DISEASE, UNSPECIFIED Qualifiers: COPD type: unspecified COPD Qualified Code(s): J44.9 - Chronic obstructive pulmonary disease, unspecified (3) Respiratory failure, chronic Code(s): J96.10 - CHRONIC RESPIRATORY FAILURE, UNSP W HYPOXIA OR HYPERCAPNIA (4) Sepsis Code(s): A41.9 - SEPSIS, UNSPECIFIED ORGANISM Qualifiers: Sepsis type: sepsis due to unspecified organism Qualified Code(s): A41.9 - Sepsis, unspecified organism Assessment/Plan Will adjust vent to keep o2 sat greater than 90% hold antibiotics for now/low index of suspicion for pneumonia multiple co-morbid conditions as listed in history taper medrol BP control Filomena DUNN MD
[2018-08-11] MEDS: SODIUM CHLORIDE 1,000 ML IV SCH (22:28)
[2018-08-11] MEDS: DONEPEZIL HCL 5 MG TABLET (FP) GT SCH (22:37)
[2018-08-12] MEDS: ZOLPIDEM TARTRATE 5 MG TABLET NGT PRN ×2 (00:06→22:36)
[2018-08-12] MEDS ORDERED: DEXTROSE 5%-WATER - 50 ML IVPB ONE ×3 (01:51→17:23)
[2018-08-12] MEDS ORDERED: PIPERACILLIN/TAZOBACTAM 3.375 GM VIAL IVPB ONE ×3 (01:51→17:23)
[2018-08-12] MEDS: methylPREDNISolone NA SUCC 40 MG/1 ML VIAL IVPUSH SCH ×3 (01:53→18:26)
[2018-08-12] MEDS: PIPERACILLIN/TAZOB 3.375 GM 3.375 GM in DEXTROSE 5%-WATER - 50 ML IVPB SCH ×3 (01:53→18:26)
[2018-08-12] MEDS: HEPARIN NA (PORCINE) 5,000 UNITS/ML 1ML VIAL SQ SCH ×3 (06:26→22:37)
[2018-08-12] MEDS: ALBUTEROL SO4 2.5/IPRATROPIUM 0.5 INH SOL 3 ML VIAL.NEB. NEB SCH ×4 (07:30→19:45)
[2018-08-12 07:53] LABS: BASO % 0.1 % (0-2.0); HEMATOCRIT 39.2 % (32.4-45.2); HEMOGLOBIN 12.7 GM/dL (10.7-15.3); LYMPH % 4.6 % (8-40); MCH 26.3 pg (25.7-33.7); MCHC 32.3 g/dl (32.0-36.0); MEAN CELL VOLUME 81.4 fl (80-96); MEAN PLT VOLUME 8.5 fl (7.5-11.1); MONO % 2.6 % (3.8-10.2); NEUT % 92.7 % (42.8-82.8); PLATELET COUNT 256 K/MM3 (134-434); RBC 4.82 M/mm3 (3.60-5.2); RDW 17.1 % (11.6-15.6)
[2018-08-12] MEDS ORDERED: PT OWN MED DRAWER 7, Y5N ONE (08:11)
[2018-08-12 08:40] LABS: ALBUMIN 3.1 g/dl (3.4-5.0); ALK PHOS 70 U/L (45-117); ANION GAP 10 MMOL/L (8-16); BLOOD UREA NITROGEN 22 mg/dL (7-18); CALCIUM 9.6 mg/dL (8.5-10.1); CHLORIDE 102 mmol/L (98-107); CO2 25 mmol/L (21-32); CREATININE 0.8 mg/dL (0.55-1.3); GLUCOSE,RANDOM 95 mg/dL (74-106); POTASSIUM 3.8 mmol/L (3.5-5.1); SGOT/AST 18 U/L (15-37); SGPT/ALT 6 U/L (13-61); SODIUM 137 mmol/L (136-145); TOT PROT 7.2 g/dl (6.4-8.2)
[2018-08-12] MEDS ORDERED: FLU VACCINE QUAD 60 MCG/0.5 ML (MDV 18-19) IM ONE (09:00)
[2018-08-12] MEDS: PANTOPRAZOLE SODIUM 40 MG VIAL IVPUSH SCH (11:03)
[2018-08-12] MEDS: amLODIPine BESYLATE 10 MG TABLET (FP) PO SCH (11:04)
[2018-08-12] MEDS: LOSARTAN POTASSIUM 50 MG TABLET (FP) PO SCH (11:04)
[2018-08-12] MEDS: VANCOMYCIN 1 GRAM (PRE-DOCKED) 1,000 MG/250 ML BAG IVPB SCH ×2 (11:05→22:36)
[2018-08-12] MEDS: SODIUM CHLORIDE 1,000 ML IV SCH ×2 (11:12→22:37)
--- NOTE | 2018-08-12 11:36 | PN ---
Progress Note, Physician Chief Complaint: AWAKE ALERT EVENTS AND NOTES REVIEWED ON VENT - Current Medication List Current Medications: Active Medications Albuterol/Ipratropium (Duoneb -) 1 amp NEB RQID [facility] Last Admin: 08/12/18 07:30 Dose: 1 amp Amlodipine Besylate (Norvasc -) 10 mg PO DAILY [facility] Last Admin: 08/12/18 11:04 Dose: 10 mg Carbidopa/Levodopa (Sinemet *Cr* 50/200 -) 1 combo PO QID [facility] Last Admin: 08/12/18 11:04 Dose: 1 combo Donepezil HCl (Aricept -) 5 mg GT HS [facility] Last Admin: 08/11/18 22:37 Dose: 5 mg Heparin Sodium (Porcine) (Heparin -) 5,000 unit SQ TID [facility] Last Admin: 08/12/18 06:26 Dose: 5,000 unit Sodium Chloride (Normal Saline -) 1,000 mls @ 42 mls/hr IV ASDIR [facility] Last Admin: 08/12/18 11:12 Dose: 42 mls/hr Piperacillin Sod/Tazobactam (Sod 3.375 gm/ Dextrose) 50 mls @ 100 mls/hr IVPB Q8H-IV [facility]; Protocol Last Admin: 08/12/18 11:05 Dose: 100 mls/hr Losartan Potassium (Cozaar -) 50 mg PO DAILY [facility] Last Admin: 08/12/18 11:04 Dose: 50 mg Methylprednisolone Sodium Succinate (Solu-Medrol -) 20 mg IVPUSH Q8H-IV [facility] Last Admin: 08/12/18 11:03 Dose: 20 mg Non-Formulary Medication (Selegiline Hcl [Selegiline Hcl]) 5 mg NGT DAILY [facility] Pantoprazole Sodium (Protonix Iv) 40 mg IVPUSH DAILY [facility] Last Admin: 08/12/18 11:03 Dose: 40 mg Vancomycin HCl (Vancomycin (Pre-Docked)) 1,000 mg IVPB BID [facility] Last Admin: 08/12/18 11:05 Dose: 1,000 mg Zolpidem Tartrate (Ambien -) 5 mg NGT HS PRN PRN Reason: INSOMNIA Last Admin: 08/12/18 00:06 Dose: 5 mg - Objective Vital Signs: Vital Signs Temperature 98.9 F 08/12/18 06:00 Pulse Rate 63 08/12/18 08:23 Respiratory Rate 17 08/12/18 08:23 Blood Pressure 122/77 08/12/18 06:00 O2 Sat by Pulse Oximetry (%) 97 08/12/18 08:23 Constitutional: Yes: Mild Distress Eyes: Yes: Ptosis HENT: Yes: WNL Neck: Yes: WNL, Other (TRACHEOSTOMY) Cardiovascular: Yes: Regular Rate and Rhythm Respiratory: Yes: Diminished, Mechanically Ventilated Gastrointestinal: Yes: Soft, Other (GTUBE) Genitourinary: Yes: Incontinence Musculoskeletal: Yes: Muscle Weakness Extremities: Yes: Other Edema: No Peripheral Pulses WNL: Yes Integumentary: Yes: Other Wound/Incision: Yes: Other Neurological: Yes: Pre-Existing Deficit ...Motor Strength: LLE, RLE Psychiatric: Yes: Other Labs: CBC, BMP 08/12/18 06:15 08/12/18 06:15 INR, PTT INR 0.94 (0.83-1.09) 08/10/18 15:10 Problem List - Problems (1) COPD (chronic obstructive pulmonary disease) Code(s): J44.9 - CHRONIC OBSTRUCTIVE PULMONARY DISEASE, UNSPECIFIED Qualifiers: COPD type: unspecified COPD Qualified Code(s): J44.9 - Chronic obstructive pulmonary disease, unspecified (2) HTN (hypertension) Code(s): I10 - ESSENTIAL (PRIMARY) HYPERTENSION (3) Hypertension Code(s): I10 - ESSENTIAL (PRIMARY) HYPERTENSION (4) Hypoxia Code(s): R09.02 - HYPOXEMIA (5) PNA (pneumonia) Code(s): J18.9 - PNEUMONIA, UNSPECIFIED ORGANISM Qualifiers: Pneumonia type: due to unspecified organism Laterality: right Lung location: unspecified part of lung Qualified Code(s): J18.9 - Pneumonia, unspecified organism (6) Respiratory failure, chronic Code(s): J96.10 - CHRONIC RESPIRATORY FAILURE, UNSP W HYPOXIA OR HYPERCAPNIA (7) Sepsis Code(s): A41.9 - SEPSIS, UNSPECIFIED ORGANISM Qualifiers: Sepsis type: sepsis due to unspecified organism Qualified Code(s): A41.9 - Sepsis, unspecified organism Assessment/Plan IV ABX PER ID PULM EVAL TAPER STEROIDS PPI DVT PROPHYLAXIS NEBS/02 SUPPORT TRANSFER BACK TO [facility] WHEN 02 SAT STABLE
[2018-08-12 11:51] LABS: PLATELET ESTIMATE ADEQUATE
--- NOTE | 2018-08-12 13:25 | PN ---
Progress Note (short form) - Note Progress Note: PULMONARY PULMONARY APPEARS MORE AWAKE TODAY VSS/AFEBRILE TRRACH IN PLACE DIMINISHED BREATH SOUNDS B/L S1S2 BS+ SOFT NO EDEMA LABS/MEDS/NOTES/IMAGES/MICRO REVIEWED VENT SETTINGS NOTED (1) Hypertension Code(s): I10 - ESSENTIAL (PRIMARY) HYPERTENSION (2) COPD (chronic obstructive pulmonary disease) Code(s): J44.9 - CHRONIC OBSTRUCTIVE PULMONARY DISEASE, UNSPECIFIED Qualifiers: COPD type: unspecified COPD Qualified Code(s): J44.9 - Chronic obstructive pulmonary disease, unspecified (3) Respiratory failure, chronic Code(s): J96.10 - CHRONIC RESPIRATORY FAILURE, UNSP W HYPOXIA OR HYPERCAPNIA (4) Sepsis Code(s): A41.9 - SEPSIS, UNSPECIFIED ORGANISM Qualifiers: Sepsis type: sepsis due to unspecified organism Qualified Code(s): A41.9 - Sepsis, unspecified organism Assessment/Plan Will adjust vent to keep o2 sat greater than 90% Antibiotics as per primary team multiple co-morbid conditions as listed in history taper medrol BP control Filomena DUNN MD Problem List - Problems (1) Hypertension Code(s): I10 - ESSENTIAL (PRIMARY) HYPERTENSION (2) COPD (chronic obstructive pulmonary disease) Code(s): J44.9 - CHRONIC OBSTRUCTIVE PULMONARY DISEASE, UNSPECIFIED Qualifiers: COPD type: unspecified COPD Qualified Code(s): J44.9 - Chronic obstructive pulmonary disease, unspecified (3) Respiratory failure, chronic Code(s): J96.10 - CHRONIC RESPIRATORY FAILURE, UNSP W HYPOXIA OR HYPERCAPNIA (4) Sepsis Code(s): A41.9 - SEPSIS, UNSPECIFIED ORGANISM Qualifiers: Sepsis type: sepsis due to unspecified organism Qualified Code(s): A41.9 - Sepsis, unspecified organism
--- NOTE | 2018-08-12 15:47 | PN ---
Progress Note (short form) - Note Progress Note: resting comfortably no fevers now on steroids chest ct with lright effusion and atelectasis Vital Signs Period Temp Pulse Resp BP Sys/Garibay Pulse Ox Last 24 Hr 98 F-98.9 F 63-82 14-26 122-133/77-95 97-100 trach to vent cor-rrr lungs decreased bs right base abd soft,nt ext no edema CBC, BMP 08/12/18 06:15 08/12/18 06:15 Microbiology 08/10/18 15:10 Blood - Peripheral Venous Blood Culture - Preliminary NO GROWTH OBTAINED AFTER 48 HOURS, INCUBATION TO CONTINUE FOR 3 DAYS. 08/10/18 15:10 Blood - Peripheral Venous Blood Culture - Preliminary NO GROWTH OBTAINED AFTER 48 HOURS, INCUBATION TO CONTINUE FOR 3 DAYS. 08/10/18 17:03 Sputum - Endotrachea Suction/Ventilator Gram Stain - Final 08/10/18 17:03 Sputum - Endotrachea Suction/Ventilator Sputum Culture - Preliminary Staphylococcus Latex Coag Pos Non Lactose Fermenting Gnb 08/10/18 17:10 Urine - Urine - Catheterized Urine Culture - Preliminary Lactose Fermenting Neg Bacilli a/p repeat cxray continue antibiotics for now doubt uti- presented with hypertension and hypoxia chronic resp failure leukocytosis likely steroids htn Problem List - Problems (1) PNA (pneumonia) Code(s): J18.9 - PNEUMONIA, UNSPECIFIED ORGANISM Qualifiers: Pneumonia type: due to unspecified organism Laterality: right Lung location: unspecified part of lung Qualified Code(s): J18.9 - Pneumonia, unspecified organism (2) Respiratory failure, chronic Code(s): J96.10 - CHRONIC RESPIRATORY FAILURE, UNSP W HYPOXIA OR HYPERCAPNIA (3) Hypoxia Code(s): R09.02 - HYPOXEMIA (4) HTN (hypertension) Code(s): I10 - ESSENTIAL (PRIMARY) HYPERTENSION (5) MRSA (methicillin resistant Staphylococcus aureus) colonization Code(s): Z22.322 - CARRIER OR SUSPECTED CARRIER OF METHICILLIN RESIS STAPH
[2018-08-12 16:43] VITALS: BMI 26.5
[2018-08-12] MEDS: DONEPEZIL HCL 5 MG TABLET (FP) GT SCH (22:38)
[2018-08-13] MEDS ORDERED: PIPERACILLIN/TAZOBACTAM 3.375 GM VIAL IVPB ONE ×3 (02:28→17:22)
[2018-08-13] MEDS ORDERED: DEXTROSE 5%-WATER - 50 ML IVPB ONE ×3 (02:29→17:22)
[2018-08-13] MEDS: methylPREDNISolone NA SUCC 40 MG/1 ML VIAL IVPUSH SCH ×3 (03:32→18:34)
[2018-08-13] MEDS: PIPERACILLIN/TAZOB 3.375 GM 3.375 GM in DEXTROSE 5%-WATER - 50 ML IVPB SCH ×3 (03:32→18:34)
[2018-08-13] MEDS: HEPARIN NA (PORCINE) 5,000 UNITS/ML 1ML VIAL SQ SCH ×3 (05:42→21:58)
[2018-08-13] MEDS: ALBUTEROL SO4 2.5/IPRATROPIUM 0.5 INH SOL 3 ML VIAL.NEB. NEB SCH ×4 (07:30→19:50)
--- NOTE | 2018-08-13 10:04 | PN ---
Progress Note (short form) - Note Progress Note: PULMONARY PULMONARY APPEARS MORE AWAKE TODAY VSS/AFEBRILE TRACH IN PLACE DIMINISHED BREATH SOUNDS B/L S1S2 BS+ SOFT NO EDEMA LABS/MEDS/NOTES/IMAGES/MICRO REVIEWED VENT SETTINGS NOTED (1) Hypertension Code(s): I10 - ESSENTIAL (PRIMARY) HYPERTENSION (2) COPD (chronic obstructive pulmonary disease) Code(s): J44.9 - CHRONIC OBSTRUCTIVE PULMONARY DISEASE, UNSPECIFIED Qualifiers: COPD type: unspecified COPD Qualified Code(s): J44.9 - Chronic obstructive pulmonary disease, unspecified (3) Respiratory failure, chronic Code(s): J96.10 - CHRONIC RESPIRATORY FAILURE, UNSP W HYPOXIA OR HYPERCAPNIA (4) Sepsis Code(s): A41.9 - SEPSIS, UNSPECIFIED ORGANISM Qualifiers: Sepsis type: sepsis due to unspecified organism Qualified Code(s): A41.9 - Sepsis, unspecified organism Assessment/Plan Will adjust vent to keep o2 sat greater than 90% Antibiotics as per primary team multiple co-morbid conditions as listed in history taper medrol BP control Filomena DUNN MD Problem List - Problems (1) Hypertension Code(s): I10 - ESSENTIAL (PRIMARY) HYPERTENSION (2) COPD (chronic obstructive pulmonary disease) Code(s): J44.9 - CHRONIC OBSTRUCTIVE PULMONARY DISEASE, UNSPECIFIED Qualifiers: COPD type: unspecified COPD Qualified Code(s): J44.9 - Chronic obstructive pulmonary disease, unspecified (3) Respiratory failure, chronic Code(s): J96.10 - CHRONIC RESPIRATORY FAILURE, UNSP W HYPOXIA OR HYPERCAPNIA (4) Sepsis Code(s): A41.9 - SEPSIS, UNSPECIFIED ORGANISM Qualifiers: Sepsis type: sepsis due to unspecified organism Qualified Code(s): A41.9 - Sepsis, unspecified organism
[2018-08-13] MEDS: VANCOMYCIN 1 GRAM (PRE-DOCKED) 1,000 MG/250 ML BAG IVPB SCH (10:13)
[2018-08-13] MEDS: PANTOPRAZOLE SODIUM 40 MG VIAL IVPUSH SCH (11:08)
[2018-08-13] MEDS: amLODIPine BESYLATE 10 MG TABLET (FP) PO SCH (11:15)
[2018-08-13] MEDS: LOSARTAN POTASSIUM 50 MG TABLET (FP) PO SCH (11:15)
--- NOTE | 2018-08-13 13:29 | PN ---
Progress Note (short form) - Note Progress Note: resting comfortably repeat cxray no infiltrate or effusion! Vital Signs Period Temp Pulse Resp BP Sys/Garibay Pulse Ox Last 24 Hr 98.3 F-98.7 F 56-98 14-25 115-145/71-94 98-100 cor-rrr lungs clear abd soft,nt ext no edema CBC, BMP 08/12/18 06:15 08/12/18 06:15 Microbiology 08/10/18 17:10 Urine - Urine - Catheterized Urine Culture - Preliminary Lactose Fermenting Neg Bacilli 08/10/18 17:03 Sputum - Endotrachea Suction/Ventilator Gram Stain - Final 08/10/18 17:03 Sputum - Endotrachea Suction/Ventilator Sputum Culture - Final S Aureus Proteus Mirabilis 08/12/18 15:40 Urine For Antigen Detection Legionella Antigen - Final 08/12/18 15:40 Urine For Antigen Detection Streptococcus pneumoniae Antigen (M - Final 08/10/18 15:10 Blood - Peripheral Venous Blood Culture - Preliminary NO GROWTH OBTAINED AFTER 48 HOURS, INCUBATION TO CONTINUE FOR 3 DAYS. 08/10/18 15:10 Blood - Peripheral Venous Blood Culture - Preliminary NO GROWTH OBTAINED AFTER 48 HOURS, INCUBATION TO CONTINUE FOR 3 DAYS. Active Medications Albuterol/Ipratropium (Duoneb -) 1 amp NEB RQID [facility] Last Admin: 08/13/18 12:10 Dose: 1 amp Amlodipine Besylate (Norvasc -) 10 mg PO DAILY [facility] Last Admin: 08/13/18 11:15 Dose: 10 mg Carbidopa/Levodopa (Sinemet *Cr* 50/200 -) 1 combo PO QID [facility] Last Admin: 08/13/18 13:15 Dose: 1 combo Donepezil HCl (Aricept -) 5 mg GT HS [facility] Last Admin: 08/12/18 22:38 Dose: 5 mg Heparin Sodium (Porcine) (Heparin -) 5,000 unit SQ TID [facility] Last Admin: 08/13/18 11:12 Dose: 5,000 unit Sodium Chloride (Normal Saline -) 1,000 mls @ 42 mls/hr IV ASDIR [facility] Last Admin: 08/12/18 22:37 Dose: Not Given Piperacillin Sod/Tazobactam (Sod 3.375 gm/ Dextrose) 50 mls @ 100 mls/hr IVPB Q8H-IV [facility]; Protocol Last Admin: 08/13/18 11:08 Dose: 100 mls/hr Losartan Potassium (Cozaar -) 50 mg PO DAILY [facility] Last Admin: 08/13/18 11:15 Dose: 50 mg Methylprednisolone Sodium Succinate (Solu-Medrol -) 20 mg IVPUSH Q8H-IV [facility] Last Admin: 08/13/18 11:11 Dose: 20 mg Non-Formulary Medication (Selegiline Hcl [Selegiline Hcl]) 5 mg NGT DAILY [facility] Pantoprazole Sodium (Protonix Iv) 40 mg IVPUSH DAILY [facility] Last Admin: 08/13/18 11:08 Dose: 40 mg Vancomycin HCl (Vancomycin (Pre-Docked)) 1,000 mg IVPB BID [facility] Last Admin: 08/13/18 10:13 Dose: 1,000 mg Zolpidem Tartrate (Ambien -) 5 mg NGT HS PRN PRN Reason: INSOMNIA Last Admin: 08/12/18 22:36 Dose: 5 mg a/p repeat cxray clear suspect hypoxia was due to atelectasis that has resolved d/c vancomycin f/u cultures in am zosyn to [facility] for now Problem List - Problems (1) PNA (pneumonia) Code(s): J18.9 - PNEUMONIA, UNSPECIFIED ORGANISM Qualifiers: Pneumonia type: due to unspecified organism Laterality: right Lung location: unspecified part of lung Qualified Code(s): J18.9 - Pneumonia, unspecified organism (2) Respiratory failure, chronic Code(s): J96.10 - CHRONIC RESPIRATORY FAILURE, UNSP W HYPOXIA OR HYPERCAPNIA (3) Hypoxia Code(s): R09.02 - HYPOXEMIA (4) HTN (hypertension) Code(s): I10 - ESSENTIAL (PRIMARY) HYPERTENSION (5) MRSA (methicillin resistant Staphylococcus aureus) colonization Code(s): Z22.322 - CARRIER OR SUSPECTED CARRIER OF METHICILLIN RESIS STAPH
--- NOTE | 2018-08-13 14:33 | PN ---
Progress Note, Physician Chief Complaint: ASLEEP NAD - Current Medication List Current Medications: Active Medications Albuterol/Ipratropium (Duoneb -) 1 amp NEB RQID [facility] Last Admin: 08/13/18 12:10 Dose: 1 amp Amlodipine Besylate (Norvasc -) 10 mg PO DAILY [facility] Last Admin: 08/13/18 11:15 Dose: 10 mg Carbidopa/Levodopa (Sinemet *Cr* 50/200 -) 1 combo PO QID [facility] Last Admin: 08/13/18 13:15 Dose: 1 combo Donepezil HCl (Aricept -) 5 mg GT HS [facility] Last Admin: 08/12/18 22:38 Dose: 5 mg Heparin Sodium (Porcine) (Heparin -) 5,000 unit SQ TID [facility] Last Admin: 08/13/18 11:12 Dose: 5,000 unit Sodium Chloride (Normal Saline -) 1,000 mls @ 42 mls/hr IV ASDIR [facility] Last Admin: 08/12/18 22:37 Dose: Not Given Piperacillin Sod/Tazobactam (Sod 3.375 gm/ Dextrose) 50 mls @ 100 mls/hr IVPB Q8H-IV [facility]; Protocol Last Admin: 08/13/18 11:08 Dose: 100 mls/hr Losartan Potassium (Cozaar -) 50 mg PO DAILY [facility] Last Admin: 08/13/18 11:15 Dose: 50 mg Methylprednisolone Sodium Succinate (Solu-Medrol -) 20 mg IVPUSH Q8H-IV [facility] Last Admin: 08/13/18 11:11 Dose: 20 mg Non-Formulary Medication (Selegiline Hcl [Selegiline Hcl]) 5 mg NGT DAILY [facility] Pantoprazole Sodium (Protonix Iv) 40 mg IVPUSH DAILY [facility] Last Admin: 08/13/18 11:08 Dose: 40 mg Zolpidem Tartrate (Ambien -) 5 mg NGT HS PRN PRN Reason: INSOMNIA Last Admin: 08/12/18 22:36 Dose: 5 mg - Objective Vital Signs: Vital Signs Temperature 98.4 F 08/13/18 13:04 Pulse Rate 57 L 08/13/18 13:04 Respiratory Rate 16 08/13/18 13:04 Blood Pressure 145/94 08/13/18 13:04 O2 Sat by Pulse Oximetry (%) 98 08/13/18 12:09 Constitutional: Yes: No Distress Eyes: Yes: WNL HENT: Yes: WNL Neck: Yes: WNL Cardiovascular: Yes: WNL Respiratory: Yes: Diminished, Mechanically Ventilated Gastrointestinal: Yes: Other Genitourinary: Yes: Incontinence Musculoskeletal: Yes: Muscle Weakness Extremities: Yes: Other Integumentary: Yes: Other Wound/Incision: Yes: Dressing Dry and Intact Neurological: Yes: Pre-Existing Deficit ...Motor Strength: LLE, RLE Psychiatric: Yes: Other Labs: CBC, BMP 08/12/18 06:15 08/12/18 06:15 INR, PTT INR 0.94 (0.83-1.09) 08/10/18 15:10 Problem List - Problems (1) COPD (chronic obstructive pulmonary disease) Code(s): J44.9 - CHRONIC OBSTRUCTIVE PULMONARY DISEASE, UNSPECIFIED Qualifiers: COPD type: unspecified COPD Qualified Code(s): J44.9 - Chronic obstructive pulmonary disease, unspecified (2) HTN (hypertension) Code(s): I10 - ESSENTIAL (PRIMARY) HYPERTENSION (3) Hypertension Code(s): I10 - ESSENTIAL (PRIMARY) HYPERTENSION (4) Hypoxia Code(s): R09.02 - HYPOXEMIA (5) PNA (pneumonia) Code(s): J18.9 - PNEUMONIA, UNSPECIFIED ORGANISM Qualifiers: Pneumonia type: due to unspecified organism Laterality: right Lung location: unspecified part of lung Qualified Code(s): J18.9 - Pneumonia, unspecified organism (6) Respiratory failure, chronic Code(s): J96.10 - CHRONIC RESPIRATORY FAILURE, UNSP W HYPOXIA OR HYPERCAPNIA (7) Sepsis Code(s): A41.9 - SEPSIS, UNSPECIFIED ORGANISM Qualifiers: Sepsis type: sepsis due to unspecified organism Qualified Code(s): A41.9 - Sepsis, unspecified organism Assessment/Plan IV ABX PER ID PULM EVAL TAPER STEROIDS PPI DVT PROPHYLAXIS NEB/02 SUPPORT TRANSFER BACK TO [facility] WHEN 02 SAT STABLE
[2018-08-13] MEDS: SODIUM CHLORIDE 1,000 ML IV SCH (21:57)
[2018-08-13] MEDS: ZOLPIDEM TARTRATE 5 MG TABLET NGT PRN (21:58)
[2018-08-13] MEDS: DONEPEZIL HCL 5 MG TABLET (FP) GT SCH (21:59)
[2018-08-14] MEDS ORDERED: PIPERACILLIN/TAZOBACTAM 3.375 GM VIAL IVPB ONE ×3 (01:21→17:36)
[2018-08-14] MEDS ORDERED: DEXTROSE 5%-WATER - 50 ML IVPB ONE ×3 (01:21→17:37)
[2018-08-14] MEDS: methylPREDNISolone NA SUCC 40 MG/1 ML VIAL IVPUSH SCH ×2 (01:30→10:48)
[2018-08-14] MEDS: PIPERACILLIN/TAZOB 3.375 GM 3.375 GM in DEXTROSE 5%-WATER - 50 ML IVPB SCH ×3 (01:30→18:02)
[2018-08-14] MEDS: SODIUM CHLORIDE 1,000 ML IV SCH ×2 (01:30→22:25)
[2018-08-14] MEDS: HEPARIN NA (PORCINE) 5,000 UNITS/ML 1ML VIAL SQ SCH ×3 (05:38→22:25)
[2018-08-14] MEDS: ALBUTEROL SO4 2.5/IPRATROPIUM 0.5 INH SOL 3 ML VIAL.NEB. NEB SCH ×4 (07:30→21:00)
[2018-08-14 08:26] LABS: HEMATOCRIT 37.7 % (32.4-45.2); HEMOGLOBIN 12.5 GM/dL (10.7-15.3); MCHC 33.1 g/dl (32.0-36.0); MEAN CELL VOLUME 81.6 fl (80-96); MEAN PLT VOLUME 8.6 fl (7.5-11.1); PLATELET COUNT 244 K/MM3 (134-434); RBC 4.62 M/mm3 (3.60-5.2); RDW 17.1 % (11.6-15.6); WHITE BLOOD COUNT 6.9 K/mm3 (4.0-10.0)
[2018-08-14 09:01] LABS: ANION GAP 4 MMOL/L (8-16); BLOOD UREA NITROGEN 18 mg/dL (7-18); CALCIUM 9.3 mg/dL (8.5-10.1); CHLORIDE 105 mmol/L (98-107); CO2 29 mmol/L (21-32); CREATININE 0.7 mg/dL (0.55-1.3); GLUCOSE,RANDOM 125 mg/dL (74-106); POTASSIUM 3.7 mmol/L (3.5-5.1); SODIUM 138 mmol/L (136-145)
[2018-08-14] MEDS ORDERED: PT OWN MED DRAWER 7, Y5N ONE ×6 (10:36→22:27)
[2018-08-14] MEDS: PANTOPRAZOLE SODIUM 40 MG VIAL IVPUSH SCH (10:48)
[2018-08-14] MEDS: amLODIPine BESYLATE 10 MG TABLET (FP) PO SCH ×2 (10:50→12:26)
[2018-08-14] MEDS: LOSARTAN POTASSIUM 50 MG TABLET (FP) PO SCH (10:51)
--- NOTE | 2018-08-14 10:58 | PN ---
Progress Note, Physician Chief Complaint: patient seen and examined - Current Medication List Current Medications: Active Medications Albuterol/Ipratropium (Duoneb -) 1 amp NEB RQID [facility] Last Admin: 08/14/18 07:30 Dose: 1 amp Amlodipine Besylate (Norvasc -) 10 mg PO DAILY [facility] Last Admin: 08/13/18 11:15 Dose: 10 mg Carbidopa/Levodopa (Sinemet *Cr* 50/200 -) 1 combo PO QID [facility] Last Admin: 08/14/18 10:50 Dose: 1 combo Donepezil HCl (Aricept -) 5 mg GT HS [facility] Last Admin: 08/13/18 21:59 Dose: 5 mg Heparin Sodium (Porcine) (Heparin -) 5,000 unit SQ TID [facility] Last Admin: 08/14/18 05:38 Dose: 5,000 unit Sodium Chloride (Normal Saline -) 1,000 mls @ 42 mls/hr IV ASDIR [facility] Last Admin: 08/14/18 01:30 Dose: 42 mls/hr Piperacillin Sod/Tazobactam (Sod 3.375 gm/ Dextrose) 50 mls @ 100 mls/hr IVPB Q8H-IV [facility]; Protocol Last Admin: 08/14/18 10:52 Dose: 100 mls/hr Losartan Potassium (Cozaar -) 50 mg PO DAILY [facility] Last Admin: 08/14/18 10:51 Dose: 50 mg Methylprednisolone Sodium Succinate (Solu-Medrol -) 20 mg IVPUSH BID [facility] Non-Formulary Medication (Selegiline Hcl [Selegiline Hcl]) 5 mg NGT DAILY [facility] Pantoprazole Sodium (Protonix Iv) 40 mg IVPUSH DAILY [facility] Last Admin: 08/14/18 10:48 Dose: 40 mg Zolpidem Tartrate (Ambien -) 5 mg NGT HS PRN PRN Reason: INSOMNIA Last Admin: 08/13/18 21:58 Dose: 5 mg - Objective Vital Signs: Vital Signs Temperature 98.3 F 08/14/18 10:46 Pulse Rate 56 L 08/14/18 10:46 Respiratory Rate 20 08/14/18 10:46 Blood Pressure 146/87 08/14/18 10:46 O2 Sat by Pulse Oximetry (%) 100 08/14/18 07:55 Constitutional: Yes: Calm Neck: Yes: Other (trach) Labs: CBC, BMP 08/14/18 07:30 08/14/18 07:30 INR, PTT INR 0.94 (0.83-1.09) 08/10/18 15:10
--- NOTE | 2018-08-14 11:17 | PN ---
Progress Note (short form) - Note Progress Note: PULMONARY FiO2 down to 40% today. On CPAP/PS 08/11 but becomes tachypneic when pressure support lowered. No fevers recorded. Vital Signs Period Temp Pulse Resp BP Sys/Garibay Pulse Ox Last 24 Hr 98.1 F-98.4 F 56-68 15-25 117-146/83-94 98-100 Gen: vented, awake Heart: RRR Lung: decreased breath sounds at the bases Abd: soft, nontender Ext: no edema CBC, BMP 08/14/18 07:30 08/14/18 07:30 Active Medications Albuterol/Ipratropium (Duoneb -) 1 amp NEB RQID [facility] Last Admin: 08/14/18 07:30 Dose: 1 amp Amlodipine Besylate (Norvasc -) 10 mg PO DAILY [facility] Last Admin: 08/13/18 11:15 Dose: 10 mg Carbidopa/Levodopa (Sinemet *Cr* 50/200 -) 1 combo PO QID [facility] Last Admin: 08/14/18 10:50 Dose: 1 combo Donepezil HCl (Aricept -) 5 mg GT HS [facility] Last Admin: 08/13/18 21:59 Dose: 5 mg Heparin Sodium (Porcine) (Heparin -) 5,000 unit SQ TID [facility] Last Admin: 08/14/18 05:38 Dose: 5,000 unit Sodium Chloride (Normal Saline -) 1,000 mls @ 42 mls/hr IV ASDIR [facility] Last Admin: 08/14/18 01:30 Dose: 42 mls/hr Piperacillin Sod/Tazobactam (Sod 3.375 gm/ Dextrose) 50 mls @ 100 mls/hr IVPB Q8H-IV [facility]; Protocol Last Admin: 08/14/18 10:52 Dose: 100 mls/hr Losartan Potassium (Cozaar -) 50 mg PO DAILY [facility] Last Admin: 08/14/18 10:51 Dose: 50 mg Methylprednisolone Sodium Succinate (Solu-Medrol -) 20 mg IVPUSH BID [facility] Non-Formulary Medication (Selegiline Hcl [Selegiline Hcl]) 5 mg NGT DAILY [facility] Pantoprazole Sodium (Protonix Iv) 40 mg IVPUSH DAILY [facility] Last Admin: 08/14/18 10:48 Dose: 40 mg Zolpidem Tartrate (Ambien -) 5 mg NGT HS PRN PRN Reason: INSOMNIA Last Admin: 08/13/18 21:58 Dose: 5 mg A/P Chronic Respiratory Failure COPD r/o Pneumonia vs Atelectasis HTN - empiric antibiotics per ID - taper FiO2 to keep SpO2 >90% - spontaneous breathing trials as tolerated - can taper off medrol - enteral feeds - DVT/GI prophylaxis
--- NOTE | 2018-08-14 11:33 | PN ---
Progress Note, Physician Chief Complaint: patient seen and examined on vent - Current Medication List Current Medications: Active Medications Albuterol/Ipratropium (Duoneb -) 1 amp NEB RQID [facility] Last Admin: 08/14/18 11:17 Dose: 1 amp Amlodipine Besylate (Norvasc -) 10 mg PO DAILY [facility] Last Admin: 08/13/18 11:15 Dose: 10 mg Carbidopa/Levodopa (Sinemet *Cr* 50/200 -) 1 combo PO QID [facility] Last Admin: 08/14/18 10:50 Dose: 1 combo Donepezil HCl (Aricept -) 5 mg GT HS [facility] Last Admin: 08/13/18 21:59 Dose: 5 mg Heparin Sodium (Porcine) (Heparin -) 5,000 unit SQ TID [facility] Last Admin: 08/14/18 05:38 Dose: 5,000 unit Sodium Chloride (Normal Saline -) 1,000 mls @ 42 mls/hr IV ASDIR [facility] Last Admin: 08/14/18 01:30 Dose: 42 mls/hr Piperacillin Sod/Tazobactam (Sod 3.375 gm/ Dextrose) 50 mls @ 100 mls/hr IVPB Q8H-IV [facility]; Protocol Last Admin: 08/14/18 10:52 Dose: 100 mls/hr Losartan Potassium (Cozaar -) 50 mg PO DAILY [facility] Last Admin: 08/14/18 10:51 Dose: 50 mg Methylprednisolone Sodium Succinate (Solu-Medrol -) 20 mg IVPUSH BID [facility] Non-Formulary Medication (Selegiline Hcl [Selegiline Hcl]) 5 mg NGT DAILY [facility] Pantoprazole Sodium (Protonix Iv) 40 mg IVPUSH DAILY [facility] Last Admin: 08/14/18 10:48 Dose: 40 mg Zolpidem Tartrate (Ambien -) 5 mg NGT HS PRN PRN Reason: INSOMNIA Last Admin: 08/13/18 21:58 Dose: 5 mg - Objective Vital Signs: Vital Signs Temperature 98.3 F 08/14/18 10:46 Pulse Rate 56 L 08/14/18 10:46 Respiratory Rate 20 08/14/18 10:46 Blood Pressure 146/87 08/14/18 10:46 O2 Sat by Pulse Oximetry (%) 100 08/14/18 07:55 Constitutional: Yes: Calm Neck: Yes: Other (trach) Cardiovascular: Yes: Regular Rate and Rhythm, S1, S2 Respiratory: Yes: Diminished (at bases), Mechanically Ventilated Gastrointestinal: Yes: Normal Bowel Sounds, Soft, Other ( g tube) Edema: No Labs: CBC, BMP 08/14/18 07:30 08/14/18 07:30 INR, PTT INR 0.94 (0.83-1.09) 08/10/18 15:10 Problem List - Problems (1) Respiratory failure, chronic Assessment/Plan: vent support taper medrol bronchodilators dvt ppx Code(s): J96.10 - CHRONIC RESPIRATORY FAILURE, UNSP W HYPOXIA OR HYPERCAPNIA (2) PNA (pneumonia) Assessment/Plan: Microbiology 08/10/18 17:03 Sputum - Endotrachea Suction/Ventilator Gram Stain - Final 08/10/18 17:03 Sputum - Endotrachea Suction/Ventilator Sputum Culture - Final S Aureus Proteus Mirabilis on zosyn Code(s): J18.9 - PNEUMONIA, UNSPECIFIED ORGANISM Qualifiers: Pneumonia type: due to unspecified organism Laterality: right Lung location: unspecified part of lung Qualified Code(s): J18.9 - Pneumonia, unspecified organism (3) Parkinson disease Assessment/Plan: sinemet Code(s): G20 - PARKINSON'S DISEASE
--- NOTE | 2018-08-14 15:25 | PN ---
Progress Note (short form) - Note Progress Note: resting comfortably repeat cxray no infiltrate or effusion! Vital Signs Period Temp Pulse Resp BP Sys/Garibay Pulse Ox Last 24 Hr 98.1 F-98.3 F 56-72 15-24 117-146/82-87 100-100 cor-rrr lungs clear abd soft,nt ext no edema CBC, BMP 08/14/18 07:30 08/14/18 07:30 Microbiology 08/10/18 17:10 Urine - Urine - Catheterized Urine Culture - Preliminary Lactose Fermenting Neg Bacilli 08/10/18 15:10 Blood - Peripheral Venous Blood Culture - Preliminary NO GROWTH OBTAINED AFTER 72 HOURS, INCUBATION TO CONTINUE FOR 2 DAYS. 08/10/18 15:10 Blood - Peripheral Venous Blood Culture - Preliminary NO GROWTH OBTAINED AFTER 72 HOURS, INCUBATION TO CONTINUE FOR 2 DAYS. 08/10/18 17:03 Sputum - Endotrachea Suction/Ventilator Gram Stain - Final 08/10/18 17:03 Sputum - Endotrachea Suction/Ventilator Sputum Culture - Final S Aureus Proteus Mirabilis 08/12/18 15:40 Urine For Antigen Detection Legionella Antigen - Final 08/12/18 15:40 Urine For Antigen Detection Streptococcus pneumoniae Antigen (M - Final a/p chronic respiratory failure repeat cxray clear suspect hypoxia was due to atelectasis that has resolved d/c vancomycin doubt this was pneumonia can d/c zosyn in am Problem List - Problems (1) PNA (pneumonia) Code(s): J18.9 - PNEUMONIA, UNSPECIFIED ORGANISM Qualifiers: Pneumonia type: due to unspecified organism Laterality: right Lung location: unspecified part of lung Qualified Code(s): J18.9 - Pneumonia, unspecified organism (2) Respiratory failure, chronic Code(s): J96.10 - CHRONIC RESPIRATORY FAILURE, UNSP W HYPOXIA OR HYPERCAPNIA (3) Hypoxia Code(s): R09.02 - HYPOXEMIA (4) HTN (hypertension) Code(s): I10 - ESSENTIAL (PRIMARY) HYPERTENSION (5) MRSA (methicillin resistant Staphylococcus aureus) colonization Code(s): Z22.322 - CARRIER OR SUSPECTED CARRIER OF METHICILLIN RESIS STAPH
[2018-08-14] MEDS ORDERED: methylPREDNISolone NA SUCC 40 MG/1 ML VIAL IVPUSH SCH (22:00)
[2018-08-14] MEDS: DONEPEZIL HCL 5 MG TABLET (FP) GT SCH (22:26)
[2018-08-14] MEDS: ZOLPIDEM TARTRATE 5 MG TABLET NGT PRN (22:26)
[2018-08-15] MEDS ORDERED: PIPERACILLIN/TAZOBACTAM 3.375 GM VIAL IVPB ONE (00:24)
[2018-08-15] MEDS ORDERED: DEXTROSE 5%-WATER - 50 ML IVPB ONE (00:24)
[2018-08-15] MEDS: PIPERACILLIN/TAZOB 3.375 GM 3.375 GM in DEXTROSE 5%-WATER - 50 ML IVPB SCH (01:14)
[2018-08-15] MEDS: HEPARIN NA (PORCINE) 5,000 UNITS/ML 1ML VIAL SQ SCH ×2 (05:50→14:57)
[2018-08-15] MEDS: ALBUTEROL SO4 2.5/IPRATROPIUM 0.5 INH SOL 3 ML VIAL.NEB. NEB SCH ×3 (07:55→16:00)
[2018-08-15] MEDS ORDERED: predniSONE 20 MG TABLET (UD) PO SCH (10:45)
[2018-08-15] MEDS: LOSARTAN POTASSIUM 50 MG TABLET (FP) PO SCH (10:56)
[2018-08-15] MEDS: amLODIPine BESYLATE 10 MG TABLET (FP) PO SCH (10:57)
--- NOTE | 2018-08-15 11:18 | PN ---
Progress Note (short form) - Note Progress Note: PULMONARY No fevers recorded. Tolerating SIMV trial. Vital Signs Period Temp Pulse Resp BP Sys/Garibay Pulse Ox Last 24 Hr 98.2 F-98.8 F 55-80 14-26 130-165/82-97 99-100 Gen: vented, awake Heart: RRR Lung: decreased breath sounds at the bases Abd: soft, nontender Ext: no edema CBC, BMP 08/14/18 07:30 08/14/18 07:30 Active Medications Albuterol/Ipratropium (Duoneb -) 1 amp NEB RQID [facility] Last Admin: 08/15/18 11:12 Dose: 1 amp Amlodipine Besylate (Norvasc -) 10 mg PO DAILY [facility] Last Admin: 08/15/18 10:57 Dose: 10 mg Carbidopa/Levodopa (Sinemet *Cr* 50/200 -) 1 combo PO QID [facility] Last Admin: 08/15/18 10:56 Dose: 1 combo Donepezil HCl (Aricept -) 5 mg GT HS [facility] Last Admin: 08/14/18 22:26 Dose: 5 mg Heparin Sodium (Porcine) (Heparin -) 5,000 unit SQ TID [facility] Last Admin: 08/15/18 05:50 Dose: 5,000 unit Losartan Potassium (Cozaar -) 50 mg PO DAILY [facility] Last Admin: 08/15/18 10:56 Dose: 50 mg Non-Formulary Medication (Selegiline Hcl [Selegiline Hcl]) 5 mg NGT DAILY [facility] Prednisone (Deltasone -) 20 mg PO DAILY [facility] Last Admin: 08/15/18 10:56 Dose: 20 mg Zolpidem Tartrate (Ambien -) 5 mg NGT HS PRN PRN Reason: INSOMNIA Last Admin: 08/14/18 22:26 Dose: 5 mg A/P Chronic Respiratory Failure COPD Likely Atelectasis resolved HTN - complete empiric antibiotics per ID - taper FiO2 to keep SpO2 >90% - spontaneous breathing trials as tolerated - can attempt trach collar 40% FiO2 - taper off prednisone - enteral feeds - DVT/GI prophylaxis
[2018-08-15] MEDS ORDERED: LOSARTAN POTASSIUM 50 MG TABLET (FP) PO ONE (11:25)
[2018-08-15] MEDS ORDERED: LOSARTAN POTASSIUM 50 MG TABLET (FP) PO SCH (11:25)
--- NOTE | 2018-08-15 11:25 | DS ---
Physical Examination Vital Signs: Vital Signs Temperature 98.7 F 08/15/18 10:55 Pulse Rate 59 L 08/15/18 10:55 Respiratory Rate 23 H 08/15/18 10:55 Blood Pressure 152/96 08/15/18 10:55 O2 Sat by Pulse Oximetry (%) 99 08/15/18 07:55 Constitutional: Yes: Calm Neck: Yes: Other (trach) Cardiovascular: Yes: Regular Rate and Rhythm, S1, S2 Respiratory: Yes: CTA Bilaterally, Mechanically Ventilated Gastrointestinal: Yes: Normal Bowel Sounds, Soft, Other ( g tube) Edema: No Neurological: Yes: Alert Labs: CBC, BMP 08/14/18 07:30 08/14/18 07:30 Discharge Summary Reason For Visit: SEPSIS; COPD; PNEUMONIA Current Active Problems COPD (chronic obstructive pulmonary disease) (Acute) HTN (hypertension) (Acute) Hypertension (Acute) Hypoxia (Acute) MRSA (methicillin resistant Staphylococcus aureus) colonization (Acute) PNA (pneumonia) (Acute) Parkinson disease (Acute) Respiratory failure, chronic (Acute) Sepsis (Acute) Other Procedures: chest CT and echo Hospital Course: CHIEF COMPLAINT: shortness of breath, fatigue PCP: Dr. Kruger HISTORY OF PRESENT ILLNESS: Patient is a 68 year old female with a significant past medical history of COPD , hypertension, ventilator dependency, peg tube. She presents to the ED from [facility] for shortness of breath, increased secretions and hypoxia. In the ED patient noted to have scattered rhonchi and hypoxia with oxygen in the 80s on arrival. She was also noted to be with sinus tachycardia in the 120s. Patient was suctioned and placed on ventilator and improved. She denies chest pain, states breathing is better after placed on the vent. Denies abdominal pain. She was note to have mildly elevated WBC, scattered wheezing and course rhonchi on auscultation suspicious for aspiration pneumonia. ER course was notable for: (1) wbc 10.7 (2) ph 7.49, co2 35.8, po2 132 (3) chest xray with evidence of pneumonia. (4) ekg with nsr 113, non specific t wave abnormality Family History: Allergies cxr showed no infiltration or effusion abx stoped doubt pna most likely hypoxia was due to atelectasis HTN - cozaardose increased to 100mg continue norvasc Condition: Guarded - Instructions Referrals: Michael Kruger MD [Primary Care Provider] - Disposition: HALFWAY FACILITY - Home Medications Comprehensive Discharge Medication List: Ambulatory Orders Amlodipine Besylate 5 mg NGT DAILY 08/10/18 Budesonide [Pulmicort 0.5 mg Nebulizer -] 2 ml IH BID 08/10/18 Carbidopa/Levodopa [Carbidopa-Levo ER 50-200 Tab] 1 each PO Q6H 08/10/18 Donepezil HCl 5 mg GT DAILY 08/10/18 Ipratropium/Albuterol Sulfate [Iprat-Albut 0.5-3(2.5) mg/3 ml] 3 ml IH Q6H 08/10 Polyethylene Glycol 3350 [Miralax (For Daily Use) -] 17 gm NGT DAILY 08/10/18 Prednisone 10 mg NGT ONCE 08/10/18 Selegiline HCl 5 mg NGT DAILY 08/10/18 Verapamil HCl 40 mg GT DAILY 08/10/18 Zolpidem Tartrate [Ambien] 5 mg NGT ASDIR 08/10/18
[2018-08-15] MEDS ORDERED: ARTIFICIAL TEARS (POLYVINYL ALCOHOL) OPTH DROPS OU SCH (12:30)
[2018-08-15] MEDS ORDERED: PT OWN MED DRAWER 7, Y5N ONE (14:57)
[2018-08-15 15:30] VITALS: TEMP 98.6
[2018-08-15 16:28] VITALS: BP 123/81; PULSE 92
== END 2018-08-15 17:09 | DRG 207 ==
LOC: JER 13:28 → JERBED 17:01 → J5S 08-11 21:30
PROVIDERS: ADMIT Family Medicine; ATTEND Family Medicine
PROC: 5A1955Z Respiratory Ventilation, Greater than 96 Consecutive Hours (ICD-10-PCS; principal; 2018-08-10)
DX: J96.21 Acute and chronic respiratory failure with hypoxia (principal); J98.11 Atelectasis; Z99.11 Dependence on respirator [ventilator] status; G20 Parkinson's disease; J44.9 Chronic obstructive pulmonary disease, unspecified; I10 Essential (primary) hypertension; G30.9 Alzheimer's disease, unspecified; F02.80 Dementia in other diseases classified elsewhere, unspecified severity, without behavioral disturbance, psychotic disturbance, mood disturbance, and anxiety; G47.00 Insomnia, unspecified; Z93.0 Tracheostomy status; Z93.1 Gastrostomy status; I27.20 Pulmonary hypertension, unspecified; Z22.322 Carrier or suspected carrier of Methicillin resistant Staphylococcus aureus; R00.0 Tachycardia, unspecified; B96.4 Proteus (mirabilis) (morganii) as the cause of diseases classified elsewhere; B95.61 Methicillin susceptible Staphylococcus aureus infection as the cause of diseases classified elsewhere; R32 Unspecified urinary incontinence
CPT/HCPCS: 36415; 71045-TC-FY; 71250-TC; 80048; 80053; 81003; 81015; 82803; 83605; 83735; 84484; 85025; 85027; 85610; 85730; 87040; 87070; 87086; 87186; 87205; 87899; 93005; 93010; 93306-TC; 94002; 94640; 99285-25; G0480; J0131; J1644; J7030; J7620

== ENCOUNTER 2018-08-30 02:06 | Emergency (ER) | payer OTHER, BC ==
--- NOTE | 2018-08-30 02:50 | PDOC ---
History of Present Illness - General Chief Complaint: Injury Stated Complaint: FALL Time Seen by Provider: 08/30/18 02:47 History Source: [facility] ([facility] and nursing supervsiore ) - History of Present Illness Initial Comments: 08/30/18 02:54 68 year old female was transferring self from wheel chair to bed by self and lost balance hit head on the bed rail. patient is alert nonverbal due to trach. uses appropriate gestures. noted to have hematoma to forehead, no hip pain, no deformity. patient denies any pain at this time. patient send from [facility] for evaluation Past History - Past Medical History Allergies/Adverse Reactions: Allergies Allergy/AdvReac Type Severity Reaction Status Date / Time No Known Allergies Allergy Verified 08/30/18 02:52 Home Medications: Ambulatory Orders Budesonide [Pulmicort 0.5 mg Nebulizer -] 2 ml IH BID 08/10/18 Carbidopa/Levodopa [Carbidopa-Levo ER 50-200 Tab] 1 each PO Q6H 08/10/18 Donepezil HCl 5 mg GT DAILY 08/10/18 Ipratropium/Albuterol Sulfate [Iprat-Albut 0.5-3(2.5) mg/3 ml] 3 ml IH Q6H 08/10 Polyethylene Glycol 3350 [Miralax 119 gm Btl -] 17 gm NGT DAILY 08/10/18 Selegiline HCl 5 mg NGT DAILY 08/10/18 Zolpidem Tartrate [Ambien] 5 mg NGT ASDIR 08/10/18 Amlodipine Besylate [Norvasc -] 10 mg PO DAILY tablet 08/15/18 Losartan Potassium [Cozaar -] 100 mg PO DAILY tablet 08/15/18 Prednisone 10 mg GT DAILY #7 tab 08/15/18 predniSONE [Deltasone -] 20 mg PO DAILY #7 tablet 08/15/18 Asthma: Yes COPD: Yes Dementia: Yes (alzheime's) HTN: Yes - Suicide/Smoking/Psychosocial Hx Smoking History: Unknown if ever smoked Have you smoked in the past 12 months: No Hx Alcohol Use: No Drug/Substance Use Hx: No Substance Use Type: None *Physical Exam - Vital Signs Last Vital Signs Temp Pulse Resp BP Pulse Ox 20 08/30/18 02:30 - Physical Exam General Appearance: Yes: Appropriately Dressed, Other (trach in place on vent support) HEENT: positive: Other (+ hematoma to forehead) Neck: positive: Other (trach in place on vent support) Respiratory/Chest: positive: Rhonchi Gastrointestinal/Abdominal: positive: Normal Bowel Sounds, Soft Musculoskeletal: positive: Other (no hip pain, leg shortnening, no bruising) Progress Note - Progress Note Progress Note: A: head injury P: CT head Medical Decision Making - Medical Decision Making 08/30/18 04:31 ct head negative will send patient back to [facility]. i spoke to nursing supervisor hard candy Kathi CARRASQUILLO *DC/Admit/Observation/Transfer Diagnosis at time of Disposition: Head injury Qualifiers: Encounter type: initial encounter Qualified Code(s): S09.90XA - Unspecified injury of head, initial encounter - Discharge Dispostion Disposition: ASSISTED FACILITY Condition at time of disposition: Fair - Referrals Referrals: Michael Kruger MD [Primary Care Provider] - - Patient Instructions Printed Discharge Instructions: DI for Closed Head Injury Additional Instructions: head CT negative - Post Discharge Activity
[2018-08-30 02:53] VITALS: TEMP 98.1; BMI 39.8
[2018-08-30 06:11] VITALS: BP 146/78; PULSE 78
[2018-08-30] MEDS ORDERED: amLODIPine BESYLATE 10 MG TABLET (FP) PO ONE (06:41)
== END 2018-08-30 07:00 ==
LOC: JER 02:06
DX: S00.83XA Contusion of other part of head, initial encounter (principal); W05.0XXA Fall from non-moving wheelchair, initial encounter; Y93.89 Activity, other specified; Y92.122 Bedroom in nursing home as the place of occurrence of the external cause; Y99.8 Other external cause status; I10 Essential (primary) hypertension; J45.909 Unspecified asthma, uncomplicated; J44.9 Chronic obstructive pulmonary disease, unspecified; G30.9 Alzheimer's disease, unspecified; F02.80 Dementia in other diseases classified elsewhere, unspecified severity, without behavioral disturbance, psychotic disturbance, mood disturbance, and anxiety; Z93.0 Tracheostomy status
CPT/HCPCS: 70450-TC; 99281-25

== ENCOUNTER 2018-09-22 21:16 | Emergency (ER) | payer OTHER, BC ==
--- NOTE | 2018-09-22 21:21 | PDOC ---
History of Present Illness - General Stated Complaint: FALL Time Seen by Provider: 09/22/18 21:20 History Source: Patient, Correction Records Exam Limitations: No Limitations - History of Present Illness Initial Comments: Pt is a 68 yo F, with PMH of COPD, HTN, and ventilator dependent (with trach), who is coming via EMS from [facility], presenting with a small forehead laceration after falling out of bed while attempting to transfer herself to the wheelchair. Pt denies any LOC, and states she fell only from height of the bed onto the floor, sustaining a small head laceration to the L side of her forehead. Pt also fell earlier today (same mechanism, with transfer from the wheelchair), at [facility], sustaining a small abrasion over her L forearm. They performed an x-ray of her L forearm which was negative for fracture. Pt denies any recent fevers/chills, headache, vision changes, chest pain, palpitations, SOB, nausea/vomiting, abdominal pain, urinary symptoms, diarrhea/constipation, or leg swelling. PCP: Dr. Kruger Pt denies any cigarette, alcohol, or drug use. Pt denies any recent travel or sick contacts. 09/22/18 22:42 Past History - Travel Traveled outside of the country in the last 30 days: No Close contact w/someone who was outside of country & ill: No - Past Medical History Allergies/Adverse Reactions: Allergies Allergy/AdvReac Type Severity Reaction Status Date / Time No Known Allergies Allergy Verified 09/22/18 21:39 Home Medications: Ambulatory Orders Budesonide [Pulmicort 0.5 mg Nebulizer -] 2 ml IH BID 08/10/18 Carbidopa/Levodopa [Carbidopa-Levo ER 50-200 Tab] 1 each PO Q6H 08/10/18 Donepezil HCl 5 mg GT DAILY 08/10/18 Ipratropium/Albuterol Sulfate [Iprat-Albut 0.5-3(2.5) mg/3 ml] 3 ml IH Q6H 08/10 Polyethylene Glycol 3350 [Miralax 119 gm Btl -] 17 gm NGT DAILY 08/10/18 Selegiline HCl 5 mg NGT DAILY 08/10/18 Zolpidem Tartrate [Ambien] 5 mg NGT ASDIR 08/10/18 Amlodipine Besylate [Norvasc -] 10 mg PO DAILY tablet 08/15/18 Losartan Potassium [Cozaar -] 100 mg PO DAILY tablet 08/15/18 Prednisone 10 mg GT DAILY #7 tab 08/15/18 predniSONE [Deltasone -] 20 mg PO DAILY #7 tablet 08/15/18 Asthma: Yes COPD: Yes Dementia: Yes (alzheime's) HTN: Yes - Suicide/Smoking/Psychosocial Hx Smoking History: Unknown if ever smoked Have you smoked in the past 12 months: No Hx Alcohol Use: No Drug/Substance Use Hx: No Substance Use Type: None Review of Systems - Review of Systems Able to Perform ROS?: Yes Comments:: Pt limited due to trach tube. Answers all questions appropriately, and can vocalize minimally using the trach tube. 09/22/18 22:43 Is the patient limited Hungarian proficient: No Constitutional: No: Chills, Fever, Loss of Appetite, Weakness HEENTM: No: Recent change in vision, Nose Congestion, Throat Swelling Respiratory: No: Cough, Orthopnea, Shortness of Breath Cardiac (ROS): No: Chest Pain, Edema, Irregular Heart Rate, Lightheadedness, Palpitations, Syncope, Chest Tightness ABD/GI: No: Constipated, Diarrhea, Nausea, Poor Appetite, Poor Fluid Intake, Vomiting : No: Pain, Urgency Musculoskeletal: No: Back Pain, Joint Pain, Muscle Weakness Integumentary: Yes: Other (laceration over L eyebrow/forehead, see HPI). No: Bruising Neurological: Yes: Unsteady Gait (difficulty transferring from bed to wheelchair ). No: Headache, Numbness, Seizure, Weakness, Ataxia, Dizziness Psychiatric: No: Sleep Pattern Change, Change in Appetite Endocrine: No: Change in Weight Hematologic/Lymphatic: No: Anemia, Blood Clots, Easy Bleeding, Easy Bruising All Other Systems: Reviewed and Negative *Physical Exam - Physical Exam General Appearance: Yes: Nourished, Appropriately Dressed. No: Apparent Distress (pt ventilator dependent, but vitals stable. Pt lying comfortably. Small laceration over L eyebrow, bleeding controlled) HEENT: positive: EOMI, SAM, Normal ENT Inspection, Symmetrical, Pharynx Normal , Hearing Grossly Normal, Other (0.5 cm laceration over left forehead just lateral to L eyebrow. No head ecchymosis, crepitus, or biswas sign.). negative : Normal Voice (trach tube), Scleral Icterus (R), Scleral Icterus (L), Pharyngeal Erythema, Tonsillar Exudate, Tonsillar Erythema, Rhinorrhea Neck: positive: Trachea midline, Normal Thyroid, Supple. negative: Tender, Rigid, Lymphadenopathy (R), Lymphadenopathy (L) Respiratory/Chest: positive: Lungs Clear, Normal Breath Sounds. negative: Chest Tender, Respiratory Distress, Accessory Muscle Use, Crackles, Wheezing Cardiovascular: positive: Regular Rhythm, Regular Rate, S1, S2. negative: Edema , JVD, Murmur Vascular Pulses: Carotid (R): 4+, Carotid (L): 4+ Gastrointestinal/Abdominal: positive: Normal Bowel Sounds, Flat, Soft, Other (G- tube present, no displacement, erythmea, or drainage). negative: Tender, Organomegaly, Pulsatile Mass, Distended, Guarding, Rebound Rectal Exam: positive: deferred Lymphatic: negative: Adenopathy, Tenderness Musculoskeletal: positive: Normal Inspection. negative: CVA Tenderness, Vertebral Tenderness Extremity: positive: Normal Capillary Refill, Normal Inspection, Normal Range of Motion, Pelvis Stable. negative: Tender, Pedal Edema, Calf Tenderness, Erythema Integumentary: positive: Normal Color, Dry, Warm, Other (laceration, see above) . negative: Swelling, Ecchymosis Neurologic: positive: skip locator II-XII NML intact, Fully Oriented, Alert, Normal Mood/ Affect, Normal Response, Motor Strength 5/5. negative: EOM Palsy, Facial Droop , Numbness, Sensory Deficit Procedures - Laceration/Wound Repair Left Face Wound Length: to 2.5 cm (~0.5 cm, superficial laceration to L forehead, just lateral to L eyebrow. Bleeding well-controlled.) Wound Explored: clean Wound's Depth, Shape: superficial Irrigated w/ Saline: Yes Betadine Prep: Yes Amount of Anesthetic (ccs): 0 Wound Repaired With: Steri-strips Number of Sutures: 2 Layer Closure: No Sterile Dressing Applied: No (steri-strips applied) Splint Applied: No Sling Applied: No Progress: Pressure-irrigated with ~30 cc of sterile saline. Chloroprep was applied. Closure with 2 steri-strips, with bleeding well-controlled. 09/22/18 22:25 Medical Decision Making - Medical Decision Making Pt was seen at bedside, also will be seen by attending Dr. Keene. Pt is coming via EMS from [facility], presenting with a small forehead laceration after falling out of bed while attempting to transfer herself to the wheelchair. Pt denies any LOC, and states she fell only from height of the bed onto the floor, sustaining a small head laceration to the L side of her forehead. Pt also fell earlier today (same mechanism, with transfer from the wheelchair), at [facility], sustaining a small abrasion over her L forearm. They performed an x-ray of her L forearm which was negative for fracture. Pt denies any recent fevers/chills, headache, vision changes, chest pain, palpitations, SOB, nausea/vomiting, abdominal pain, urinary symptoms, diarrhea/constipation, or leg swelling. Vital signs stable, pt saturating well, afebrile. PE showed no focal neurologic deficits, pt A/O x3, and is able to respond to all questions appropriately. Pt has a ventilator, but is able to vocalize via her trach tube. Pt follows all commands, with muscular strength and sensation intact in all extremities. She denies any headache, vision changes, confusion, nausea, or vomiting. Will not perform a head CT at this time, due to these reasons and that pt takes no blood thinner medications. Pt is able to follow all commands appropriately, with good strength and sensation in extremities. Pt is A/O x3, denies any LOC, and Will close small laceration using sterile technique with pressure-irrigation and steri-strips. Will also provide tetanus booster, as pt cannot recall last booster given. Pt denying any pain control measures at this time. Will continue to reassess pt and monitor for symptomatic improvement. 09/22/18 21:31 Laceration was closed using sterile technique. Laceration was pressure-washed with 30 cc of sterile saline, and was then cleaned with antiseptic solution. Laceration was closed with 2 steri-strips, with bleeding controlled. Pt comfortable and continues to deny pain control. Boostrix was given. Considering benign physical exam, pt can be discharged to [facility] with follow-up. Pt advised to follow-up with PCP after returning to [facility]. Strict return precautions provided with pt understanding. 09/22/18 22:20 *DC/Admit/Observation/Transfer Diagnosis at time of Disposition: Forehead laceration Qualifiers: Encounter type: initial encounter Qualified Code(s): S01.81XA - Laceration without foreign body of other part of head, initial encounter Fall Qualifiers: Encounter type: initial encounter Qualified Code(s): W19.XXXA - Unspecified fall, initial encounter Head injury Qualifiers: Encounter type: initial encounter Qualified Code(s): S09.90XA - Unspecified injury of head, initial encounter - Discharge Dispostion Disposition: HOME Condition at time of disposition: Good Decision to Admit order: No - Referrals Referrals: Michael Kruger MD [Primary Care Provider] - - Patient Instructions Printed Discharge Instructions: How to Prevent Falls Additional Instructions: You were seen in the ER today for a laceration on your forehead. We closed the site with steri-strips. Please keep the area clean with warm soap and water. Please follow-up with your primary care doctor within 1-2 days to discuss your visit and make sure your symptoms have improved. Please return to the ER if you have any worsening head pain, development of fevers or chills, changes to your vision, loss of consciousness, inability to tolerate food or fluids, or any other concerns. - Post Discharge Activity
--- NOTE | 2018-09-22 21:31 | PDOC ---
Attending Attestation - HPI HPI: 09/22/18 22:44 The patient is a 68-year-old female with past medical history significant for COPD, HTN, ventilatory dependent with tracheostomy presents to the emergency department from [facility] s/p a fall. Per NC, around 8:00 pm today, the patient was trying to ambulate herself from the wheelchair on the bed, when she suffered a fall, denies LOC. The patient sustained a small laceration to the L. forehead. The patient reports earlier today she suffered another fall, when she was trying to ambulate from the wheelchair to the bed, at that time she sustained an abrasion to the L. arm, had an Xray which was unremarkable for fracture. Denies fever, chills, chest pain, shortness of breath, urinary symptoms or changes in bowel habits. Allergies: NKA PCP: Michael Moreira MD - Physicial Exam PE: 09/22/18 23:09 GENERAL: Awake, alert, and fully oriented, in no acute distress HEAD: No signs of trauma EYES: + R. eye doesnt abduct laterally. sclera anicteric, conjunctiva clear ENT: Auricles normal inspection, hearing grossly normal, nares patent,Moist mucosa NECK: +trach collar in place, closes the trach to speak. no lymphadenopathy, JVD, or masses LUNGS: + Trach collar in place. Breath sounds equal, clear to auscultation bilaterally. No wheezes, and no crackles HEART: +good pulse throughout. Regular rate and rhythm, normal S1 and S2, no murmurs, rubs or gallops ABDOMEN: No flank pain. Soft, nontender. No guarding, no rebound. No masses EXTREMITIES: no edema. No clubbing or cyanosis. No cords, erythema, or tenderness BACK: +abnormal S shaped spine. Old rashes noted, no new rashes noted. No spinal tenderness in cervical/thoracic/lumbar region NEUROLOGICAL: + follows commands, decreased movement on the right facial muscle , unable to raise the right eyebrows, weakness of the right eye on closing, lay s palsy on the right, unclear how long. SKIN: + bruising on the right upper arm, red bruising on the right forearm. Recent scratch to the L. inner arm. 1 cm scar to the l. Lateral eye. - Medical Decision Making 09/22/18 22:44 Documentation prepared by Ruchi Rich, acting as emergency medical tech for Bianca Keene MD. <Ruchi Rich - Last Filed: 09/22/18 23:09> - Resident Resident Name: Jaquelin Brown - ED Attending Attestation I have performed the following: I have examined & evaluated the patient, The case was reviewed & discussed with the resident, I agree w/resident's findings & plan - Medical Decision Making 09/23/18 00:04 Pt had steri strips placed on her 1cm laceration to the left lateral eye. Pt has normal exam. No acute findings, and no need for imaging of her brain or c spine at this time. Pt is stable for d/c/ home. <Bianca Keene - Last Filed: 09/23/18 00:05>
[2018-09-22 21:44] VITALS: BMI 25.7
[2018-09-22] MEDS ORDERED: DIPHTH,PERTUSS(ACELL),TET 0.5 ML DISP.SYRIN IM ONE (21:59)
[2018-09-23 02:06] VITALS: BP 123/77; PULSE 71; TEMP 98
== END 2018-09-23 03:01 ==
LOC: JER 21:16
PROC: 0HQ1XZZ Repair Face Skin, External Approach (ICD-10-PCS; principal; 2018-09-22)
PROC: 3E0234Z Introduction of Serum, Toxoid and Vaccine into Muscle, Percutaneous Approach (ICD-10-PCS; 2018-09-22)
DX: S01.81XA Laceration without foreign body of other part of head, initial encounter (principal); W06.XXXA Fall from bed, initial encounter; Z91.81 History of falling; Y93.89 Activity, other specified; Y92.122 Bedroom in nursing home as the place of occurrence of the external cause; Y99.8 Other external cause status; I10 Essential (primary) hypertension; G30.9 Alzheimer's disease, unspecified; F02.80 Dementia in other diseases classified elsewhere, unspecified severity, without behavioral disturbance, psychotic disturbance, mood disturbance, and anxiety; J44.9 Chronic obstructive pulmonary disease, unspecified; J45.990 Exercise induced bronchospasm; Z99.11 Dependence on respirator [ventilator] status; Z93.0 Tracheostomy status
CPT/HCPCS: 12011; 90471; 90715; 99282-25